=== PATIENT | female | born 1995 | race African-American/Black ===

== ENCOUNTER 2016-05-26 11:56 | Emergency (ER) | payer OTHER ==
[~2016-05-26] VITALS: Ht 170.2 cm; Wt 50.0 kg
[~2016-05-26 11:56] MED LIST: BACT800T5 PO; DICY1TAB26 PO; PROM25TA5 PO
[2016-05-26 11:58] VITALS: BP 114/57; PULSE 76; RESP 16; TEMP 98.3; O2SAT 98
--- NOTE | 2016-05-26 12:14 | PD ---
HPI Chief Complaint: Abd Pain/Sore throat. Time Seen by Provider: 12:14 Travel History International Travel<30 days: No Contact w/Intl Traveler<30days: No Traveled to known affect area: No History of Present Illness HPI 21-year-old Afro-[place]er female coming in with 2 day history of sore throat more on the right than the left, without headache, congestion, ear pain, postnasal drip, or cough. She also complaining of dull ache in the left upper quadrant. Patient is 11 weeks . Patient relates history of being treated for urinary tract infection with amoxicillin 2 weeks ago which she finished the course but did not have follow-up urinalysis. She denies nausea, vomiting, or diarrhea. Patient denies urinary symptoms or vaginal symptoms at this time. Patient has been taking Tylenol with mild relief of symptoms. Pain in the throat is 3/10, pain in the abdomen is 2/10. She states ibuprofen and Tylenol "messed with her liver". PFSH Past Medical History ADHD: Yes (PT--WAS ON MEDS IN THE PAST) Anxiety: Yes Depression: Yes Cancer: No Cardiovascular Problems: No Diabetes: No Diminished Hearing: No Gastrointestinal Disorders: No Genitourinary: No Musculoskeletal: No Neurologic: No Psychiatric: Yes ("mood disorder") Reproductive: No Respiratory: Yes Immunizations Current: Yes Migraines: No Seizures: No Thyroid Disease: No Ulcer: No : 1 Para: 0 Ovarian Cysts: Yes Dilation and Curettage (D&C): Yes Past Surgical History Other Surgery: No Social History Alcohol Use: No Tobacco Use: No Substance Use: Yes (HX OF MARIJUANA USE) Allergies-Medications (Allergen,Severity, Reaction): Coded Allergies: Ibuprofen (Verified Adverse Reaction, Unknown, 09/14/15) messes with liver Tylenol (Verified Adverse Reaction, Unknown, 09/14/15) messes with her liver Reported Meds & Prescriptions Reported Meds & Active Scripts Active Acetaminophen Extra Strength (Acetaminophen) 500 Mg Cap 1,000 Mg PO Q6H PRN Augmentin (Amoxicillin-Clavulanate) 875-125 mg Tab 875 Mg PO BID not for use in CrCl <30 ml/min. Phenergan 25 mg (Promethazine HCl) 25 Mg Tab 25 Mg PO Q6H PRN Bentyl (Dicyclomine HCl) 20 Mg Tab 20 Mg PO Q6H FOR CRAMPS Bactrim Ds1 Tab 1 Tab Tab 1 Tab PO BID Review of Systems General / Constitutional: No: Fever, Chills Eyes: No: Visual changes HENT: Positive: Sore Throat (see history of present illness), No: Headaches, Rhinitis, Rhinorrhea, Congestion, Nosebleed, Neck Stiffness, Neck Pain, Ear Discharge, Earache Cardiovascular: No: Chest Pain or Discomfort Respiratory: No: Cough, Shortness of Breath, Wheezing Gastrointestinal: Positive: Abdominal Pain (see history present illness.), No : Nausea, Vomiting, Diarrhea Genitourinary: Positive: Flank Pain (left.), No: Dysuria Musculoskeletal: No: Pain Skin: No Rash Neurologic: No: Weakness Psychiatric: No: Depression Endocrine: No: Polydipsia Hematologic/Lymphatic: No: Easy Bruising Physical Exam Narrative GENERAL: Patient appears no acute distress. SKIN: Warm and dry. Normal color. Normal turgor. HEAD: Atraumatic. Normocephalic. EYES: Pupils equal and round. No scleral icterus. No injection or drainage. ENT: No nasal bleeding or discharge. Mucous membranes pink and moist. Posterior pharynx shows increased lymphadenopathy on the right tonsil with white exudate noted, left tonsil is mildly inflamed. Uvula is midline. Strep swab is obtained. NECK: Trachea midline. No JVD. Neck is supple nontender with mild lymphadenopathy in the anterior cervical lymph nodes. Right greater than left. CARDIOVASCULAR: Regular rate and rhythm. No murmurs gallops or rubs. RESPIRATORY: No accessory muscle use. Clear to auscultation. Breath sounds equal bilaterally. GASTROINTESTINAL: Abdomen soft, non-tender, nondistended. Hepatic and splenic margins not palpable. Patient has mild CVA tenderness on the left. MUSCULOSKELETAL: Extremities without clubbing, cyanosis, or edema. No obvious deformities. NEUROLOGICAL: Awake and alert. No obvious cranial nerve deficits. Motor grossly within normal limits. Five out of 5 muscle strength in the arms and legs. Normal speech. PSYCHIATRIC: Appropriate mood and affect; insight and judgment normal. Data Data Last Documented VS Vital Signs Date Time Temp Pulse Resp B/P Pulse Ox O2 Delivery O2 Flow Rate FiO2 05/26/16 11:58 98.3 76 16 114/57 98 Room Air Orders Urinalysis - C+S If Indicated (05/26/16 12:19) Group A Rapid Strep Screen (05/26/16 12:19) Urine Culture (05/26/16 12:20) Strep Culture (Group A) (05/26/16 12:20) Labs Laboratory Tests Test 05/26/16 12:20 Urine Color YELLOW Urine Turbidity HAZY Urine pH 6.5 Urine Specific [place] 1.018 Urine Protein TRACE mg/dL Urine Glucose (UA) NEG mg/dL Urine Ketones NEG mg/dL Urine Occult Blood NEG Urine Nitrite NEG Urine Bilirubin NEG Urine Urobilinogen LESS THAN 2.0 MG/DL Urine Leukocyte Esterase LARGE Urine RBC 2 /hpf Urine WBC 15 /hpf Urine Squamous Epithelial 42 /hpf Cells Urine Amorphous Sediment RARE Urine Bacteria RARE /hpf Urine Mucus FEW /lpf Microscopic Urinalysis Comment CULTURE INDICATED MDM Medical Decision Making Medical Screen Exam Complete: Yes Emergency Medical Condition: Yes Differential Diagnosis Strep pharyngitis. Early tonsillar abscess. Urinary tract infection. Renal colic. Early pyelonephritis. 11 week . Narrative Course Patient is medically stable at time of exam. Rapid strep test is sent to the lab as well as urinalysis. Urinalysis shows obvious urinary tract infection, with urinary culture pending. Rapid strep is negative. Patient is treated with Augmentin 875 twice a day 10 days. Patient is also given acetaminophen to take as needed for pain. Patient is recommended to follow-up with her primary care physician or [facility] [employer] [facility] to ensure clearance or urinary tract infection and to ensure improvement in her sore throat. Patient may return to emergency department worsening symptoms as necessary. Diagnosis Primary Impression: UTI (lower urinary tract infection) Additional Impression: Tonsillitis with exudate Referrals: Senior Planning Analyst 1 week Patient Instructions: Dysuria (ED), General Instructions, Tonsillitis (DC) Additional Instructions: Urinalysis shows obvious urinary tract infection, with urinary culture pending. Rapid strep is negative. Patient is treated with Augmentin 875 twice a day 10 days. Patient is also given acetaminophen to take as needed for pain. Patient is recommended to follow-up with her primary care physician or [facility]EE[facility] to ensure clearance or urinary tract infection and to ensure improvement in her sore throat. Patient may return to emergency department worsening symptoms as necessary. Med/Other Pt SpecificInfo: Prescription(s) given Scripts Acetaminophen (Acetaminophen Extra Strength)500 Mg Cap1,000 Mg PO Q6H PRN (PAIN SCALE 4 TO 10) #60 CAP Ref 1 Prov:Saumya Francis MD 05/26/16 Amoxicillin-Clavulanate (Augmentin)875-125 mg [id number] Mg PO BID #20 TAB not for use in CrCl <30 ml/min. Prov:Saumya Francis MD 05/26/16 Disposition: 01 DISCHARGE HOME Condition: Stable Skinny Han May 26, 2016 12:14
[2016-05-26 12:50] LABS: BACTERIA, URINE RARE /hpf; BLOOD, URINE NEG (NEG); COMMENT (UR) CULTURE INDICATED; CULTURE IF INDICATED CULTURE INDICATED; GLUCOSE,URINE NEG (NEG); KETONE, URINE NEG (NEG); MUCUS URINE FEW /lpf (OCC); NITRITE,URINE NEG (NEG); PH, URINE 6.5 (5.0-8.5); SQUAMOUS EPITHELIAL CELL URINE 42 /hpf (0-5); URINE COLOR YELLOW (YELLW/STRAW)
[2016-05-26] MEDS ORDERED: EXTR500C PO (12:57)
[2016-05-26] MEDS ORDERED: AUGM875T PO (12:57)
[2016-05-26 13:21] VITALS: BP 112/70
[2016-06-23] MEDS ORDERED: UNIS25TA2 PO (12:53)
[2016-06-23] MEDS ORDERED: VITA25TA PO (12:53)
[2016-06-24] MEDS ORDERED: VITA25TA PO ×2 (08:43→08:46)
[2016-06-24] MEDS ORDERED: UNIS25TA2 PO ×2 (08:43→08:46)
[2016-07-04] MEDS ORDERED: UNIS25TA2 PO (16:36)
[2016-07-04] MEDS ORDERED: VITA25TA PO (16:36)
[2016-07-04] MEDS ORDERED: ROCE1INJ3 IM ×2 (16:53→20:47)
[2016-07-04] MEDS ORDERED: TRICTAB PO (20:53)
[2016-07-04] MEDS ORDERED: FERR325T PO (20:53)
[2016-10-08] MEDS ORDERED: CEPH500C PO (12:33)
== END 2016-05-26 13:45 | disposition home or self-care (01) ==
LOC: NEPE 11:56
DX: O23.41 Unspecified infection of urinary tract in pregnancy, first trimester (principal); B96.89 Other specified bacterial agents as the cause of diseases classified elsewhere; J03.90 Acute tonsillitis, unspecified; Z3A.11 11 weeks gestation of pregnancy
CPT/HCPCS: 81001; 87081; 87086; 87880; 99284

== ENCOUNTER 2016-06-04 14:36 | Emergency (ER) | payer OTHER ==
[~2016-06-04] VITALS: Ht 170.2 cm; Wt 61.4 kg
[~2016-06-04 14:36] MED LIST changes: +AUGM875T PO; +EXTR500C PO
[2016-06-04 14:37] VITALS: BP 122/54; PULSE 84; RESP 15; TEMP 98; O2SAT 98
--- NOTE | 2016-06-04 16:33 | PD ---
HPI Chief Complaint: Related Problem Time Seen by Provider: 16:33 Travel History International Travel<30 days: No Contact w/Intl Traveler<30days: No Traveled to known affect area: No [facility] Past Medical History ADHD: Yes (PT--WAS ON MEDS IN THE PAST) Anxiety: Yes Depression: Yes Cancer: No Cardiovascular Problems: No Diabetes: No Diminished Hearing: No Gastrointestinal Disorders: No Genitourinary: No Musculoskeletal: No Neurologic: No Psychiatric: Yes ("mood disorder") Reproductive: No Respiratory: Yes Immunizations Current: Yes Migraines: No Seizures: No Thyroid Disease: No Ulcer: No ?: LMP: 03/11/16 : 1 Para: 0 Ovarian Cysts: Yes Dilation and Curettage (D&C): Yes Past Surgical History Other Surgery: No Social History Alcohol Use: No Tobacco Use: No Substance Use: Yes (HX OF MARIJUANA USE) Allergies-Medications (Allergen,Severity, Reaction): Coded Allergies: Ibuprofen (Verified Adverse Reaction, Unknown, 06/04/16) messes with liver Tylenol (Verified Adverse Reaction, Unknown, 06/04/16) messes with her liver Reported Meds & Prescriptions Reported Meds & Active Scripts Active Acetaminophen Extra Strength (Acetaminophen) 500 Mg Cap 1,000 Mg PO Q6H PRN Augmentin (Amoxicillin-Clavulanate) 875-125 mg Tab 875 Mg PO BID not for use in CrCl <30 ml/min. Phenergan 25 mg (Promethazine HCl) 25 Mg Tab 25 Mg PO Q6H PRN Bentyl (Dicyclomine HCl) 20 Mg Tab 20 Mg PO Q6H FOR CRAMPS Bactrim Ds1 Tab 1 Tab Tab 1 Tab PO BID Data Data Last Documented VS Vital Signs Date Time Temp Pulse Resp B/P Pulse Ox O2 Delivery O2 Flow Rate FiO2 06/04/16 14:37 98.0 84 15 122/54 98 Skinny Han Jun 04, 2016 16:33
[2016-06-04 16:53] VITALS: BP 128/59; PULSE 77; RESP 20; O2SAT 100
--- NOTE | 2016-06-04 17:00 | PD ---
HPI Chief Complaint: Related Problem Time Seen by Provider: 16:33 Travel History International Travel<30 days: No Contact w/Intl Traveler<30days: No Traveled to known affect area: No History of Present Illness HPI This is a 21-year-old female who presents to the emergency department with vaginal bleeding. She is 14 weeks . She says that she's filled 2 pads this morning and she doesn't seem to be stopping. She has not seen any clots. She denies any cramping, lightheadedness or dizziness. She has one child who is 1 years old and she's had a stillbirth at 4.5 months. PFSH Past Medical History ADHD: Yes (PT--WAS ON MEDS IN THE PAST) Anxiety: Yes Depression: Yes Cancer: No Cardiovascular Problems: No Diabetes: No Diminished Hearing: No Gastrointestinal Disorders: No Genitourinary: No Musculoskeletal: No Neurologic: No Psychiatric: Yes ("mood disorder") Reproductive: No Respiratory: Yes Immunizations Current: Yes Migraines: No Seizures: No Thyroid Disease: No Ulcer: No ?: LMP: 03/11/16 : 1 Para: 0 Ovarian Cysts: Yes Dilation and Curettage (D&C): Yes Past Surgical History Other Surgery: No Social History Alcohol Use: No Tobacco Use: No Substance Use: Yes (HX OF MARIJUANA USE) Allergies-Medications (Allergen,Severity, Reaction): Coded Allergies: Ibuprofen (Verified Adverse Reaction, Unknown, 06/04/16) messes with liver Tylenol (Verified Adverse Reaction, Unknown, 06/04/16) messes with her liver Reported Meds & Prescriptions Reported Meds & Active Scripts Active Acetaminophen Extra Strength (Acetaminophen) 500 Mg Cap 1,000 Mg PO Q6H PRN Augmentin (Amoxicillin-Clavulanate) 875-125 mg Tab 875 Mg PO BID not for use in CrCl <30 ml/min. Phenergan 25 mg (Promethazine HCl) 25 Mg Tab 25 Mg PO Q6H PRN Bentyl (Dicyclomine HCl) 20 Mg Tab 20 Mg PO Q6H FOR CRAMPS Bactrim Ds1 Tab 1 Tab Tab 1 Tab PO BID Review of Systems Except as stated in HPI: all other systems reviewed are Neg Physical Exam Narrative GENERAL: Well-appearing, no acute distress, nontoxic SKIN: Warm and dry. HEAD: Atraumatic. Normocephalic. ENT: No nasal bleeding or discharge. Moist mucous membranes GI: Nontender, nondistended PRODUCTION LINE SOLDERER: Dark blood in the vault with no active bleeding from the os, cervix is closed long and high MUSCULOSKELETAL: No obvious deformities. No clubbing. No cyanosis. No edema. NEUROLOGICAL: Awake and alert. No obvious cranial nerve deficits. Motor grossly within normal limits. Normal speech. PSYCHIATRIC: Appropriate mood and affect; insight and judgment normal. Data Data Last Documented VS Vital Signs Date Time Temp Pulse Resp B/P Pulse Ox O2 Delivery O2 Flow Rate FiO2 06/04/16 16:53 77 20 128/59 100 Room Air 06/04/16 14:37 98.0 Orders Ed Poc Ultrasound (06/04/16 ) MDM Medical Decision Making Medical Screen Exam Complete: Yes Emergency Medical Condition: Yes Interpretation(s) Afebrile, no tachycardia, normotensive [id number] ultrasound: Intrauterine with movement is visualized with a heart rate of 164 Differential Diagnosis Ectopic , threatened miscarriage, incomplete miscarriage, complete miscarriage Narrative Course This is a 21-year-old female who presents to the emergency department with vaginal bleeding in the setting of early . Patient has evidence of some dark blood in the vault on pelvic exam. Bedside ultrasound demonstrates an intrauterine with a normal heart rate. I did discuss with the patient potential risk of miscarriage. She was discharged home and told to return if she develops heavy bleeding, lightheadedness or dizziness. Diagnosis Primary Impression: Threatened miscarriage Patient Instructions: General Instructions Additional Instructions: You have been diagnosed with a threatened miscarriage. Many women who have vaginal bleeding in early go on to have normal pregnancies. However some women that have vaginal bleeding will have a miscarriage and it is important to followup with your activity director. If you develop severe abdominal pain, fever, persistent vomiting or inability to eat, heavy vaginal bleeding using more than one pad an hour, lightheadedness , dizziness, chest pain or shortness of breath return to the emergency department immediately. Followup with your activity director as soon as possible. Take Tylenol as needed for pain. Med/Other Pt SpecificInfo: No Change to Meds Disposition: DISCHARGE HOME Condition: Stable Ailyn Mendoza MD Jun 04, 2016 17:00
[2016-06-04 17:48] VITALS: BP 124/69
[2016-06-23] MEDS ORDERED: VITA25TA PO (12:53)
[2016-06-23] MEDS ORDERED: UNIS25TA2 PO (12:53)
[2016-06-24] MEDS ORDERED: UNIS25TA2 PO ×2 (08:43→08:46)
[2016-06-24] MEDS ORDERED: VITA25TA PO ×2 (08:43→08:46)
[2016-07-04] MEDS ORDERED: UNIS25TA2 PO (16:36)
[2016-07-04] MEDS ORDERED: VITA25TA PO (16:36)
[2016-07-04] MEDS ORDERED: ROCE1INJ3 IM ×2 (16:53→20:47)
[2016-07-04] MEDS ORDERED: FERR325T PO (20:53)
[2016-07-04] MEDS ORDERED: TRICTAB PO (20:53)
[2016-10-08] MEDS ORDERED: CEPH500C PO (12:33)
== END 2016-06-04 17:48 | disposition home or self-care (01) ==
LOC: NEPE 14:36
DX: O20.0 Threatened abortion (principal); Z3A.14 14 weeks gestation of pregnancy
CPT/HCPCS: 99283

== ENCOUNTER → 2016-06-15 | Outpatient (CLI) | payer MEDICAID ==
[~2016-06-15] MED LIST changes: +ALBU6.7H INH; +CEPH-459 PO; +CEPH500C PO; +FERR324T4 PO; +FERR325T PO; +METR-1 PO; +NITR100C4 PO; +ROCE1INJ3 IM; +TRICTAB PO; +UNIS25TA2 PO; +VITA25TA PO
== END ==
LOC: HPND 08:27
PROVIDERS: ATTEND Family Medicine
DX: O26.851 Spotting complicating pregnancy, first trimester (principal)
CPT/HCPCS: 76801

== ENCOUNTER → 2016-07-11 | Outpatient (CLI) | payer MEDICAID ==
[~2016-07-11] MED LIST changes: -AUGM875T PO; -BACT800T5 PO; -DICY1TAB26 PO; -EXTR500C PO; -PROM25TA5 PO
== END ==
LOC: HPND 08:25
PROVIDERS: ATTEND Family Medicine
DX: O20.8 Other hemorrhage in early pregnancy (principal)
CPT/HCPCS: 76805

== ENCOUNTER → 2016-08-07 | Outpatient (CLI) | payer MEDICAID | LOC: HPND 08:13 | PROVIDERS: ATTEND Family Medicine | DX: O20.9 Hemorrhage in early pregnancy, unspecified (principal) | CPT/HCPCS: 76816 ==

== ENCOUNTER → 2016-09-04 | Outpatient (CLI) | payer MEDICAID | LOC: HPND 08:26 | PROVIDERS: ATTEND Family Medicine | DX: O36.8920 Maternal care for other specified fetal problems, second trimester, not applicable or unspecified (principal); Z3A.25 25 weeks gestation of pregnancy | CPT/HCPCS: 76816 ==

== ENCOUNTER → 2016-09-21 | Outpatient (CLI) | payer MEDICAID | LOC: HPND 08:34 | PROVIDERS: ATTEND Family Medicine | DX: O36.5920 Maternal care for other known or suspected poor fetal growth, second trimester, not applicable or unspecified (principal); O36.8920 Maternal care for other specified fetal problems, second trimester, not applicable or unspecified | CPT/HCPCS: 76816 ==

== ENCOUNTER 2016-10-06 12:34 | Observation (INO) | payer MEDICAID ==
[2016-10-06] VITALS (8 sets, daily range): BP systolic 116–120; BP diastolic 55–70; PULSE 71–83; RESP 16; TEMP 98.7–99.3; O2SAT 100
[~2016-10-06] VITALS: Ht 170.2 cm; Wt 63.0 kg
[~2016-10-06 12:34] MED LIST changes: -ALBU6.7H INH; -CEPH-459 PO; -CEPH500C PO; -FERR324T4 PO; -METR-1 PO; -NITR100C4 PO
[2016-10-06 14:13] LABS: BACTERIA, URINE OCC /hpf; BLOOD, URINE NEG (NEG); COMMENT (UR) CULT NOT INDICATED; CULTURE IF INDICATED CULT NOT INDICATED; GLUCOSE,URINE NEG (NEG); KETONE, URINE NEG (NEG); MUCUS URINE MOD /lpf (OCC); NITRITE,URINE NEG (NEG); SQUAMOUS EPITHELIAL CELL URINE 3 /hpf (0-5); URINE COLOR YELLOW (YELLW/STRAW)
--- NOTE | 2016-10-06 14:15 | PD ---
HPI Chief Complaint Abdominal pain, vaginal bleeding Date Seen: October 06, 2016 Time Seen: 12:30 (Rocky Greene MD R1) Travel History International Travel<30 Days: No Contact w/Intl Traveler<30Days: No Known Affected Area: No (Rocky Greene MD R1) History of Present Illness HPI Patient is a 21-year-old at about 30 weeks (HORACE of 09/03 by US, Dec. by LMP), who presents with vaginal bleeding and abdominal pain. Patient reports that she was bleeding throughout her first trimester. Around 20 weeks of gestational age, her vaginal bleeding stopped. About 2 days ago, her vaginal bleeding returned. She describes the bleeding is heavy like a period, off and on , with passage of dime-sized clots, followed within a few hours by right lower quadrant abdominal pain. Patient describes her abdominal pain as crampy, 6 out of 10 severity. Patient presented to an emergency department in [place] where they monitored her and performed a bedside ultrasound and then sent her home. She is denying any contractions or any leakage of fluid. She endorses movement. She denies any headache, vision changes, shortness of breath, chest pain, swelling of her hands or feet, leg pain, nausea, vomiting, dysuria, fever, chills. Para: 1 : 3 Miscarriage: 1 (Rocky Greene MD R1) History Past Medical History Medical History: Denies Significant Hx (Rocky Greene MD R1) Obstetric History Obstetric History Patient reports that her previous was uncomplicated vaginal at 37 weeks gestational age. She also reports one miscarriage at 16 weeks. (Rocky Greene MD R1) Past Surgical History Surgical History: No Previous Surgery (Rocky Greene MD R1) Family History Narrative Family History Patient reports that her sister had multiple deliveries of premature neonates between 20 and 30 weeks gestational age. (Rocky Greene MD R1) Social History Narrative Social History Patient reports living at home with her mother and son. Alcohol Use: No Tobacco Use: No Substance Abuse: No (Rocky Greene MD R1) Allergies-Medications (Allergen,Severity, Reaction): Coded Allergies: No Known Allergies (Unverified , 10/06/16) Home Meds Active Scripts Ferrous Sulfate DR 324 Mg [id number] Mg PO DAILY #30 TAB Ref 0 Prov:Rocky Gardner MD R2 10/07/16 Nitrofurantoin Monohydrate Macrocrystals 100 Mg [id number] Mg PO BIDPC #3 CAP Prov:Rocky Gardner MD R2 10/07/16 Vit-Ferrous Fumarate ()1 Tab Tab1 Tab PO DAILY #30 TAB Ref 11 Prov:Katie Swann MD R2 07/04/16 Reported Medications Albuterol 6.7 GM Inh (Proventil Hfa 6.7 GM Inh)90 Mcg/Act Aer2 Puff INH Q4-6H PRN (SHORTNESS OF BREATH) #1 INHALER Ref 0 10/07/16 Discontinued Scripts Ferrous Sulfate 325 Mg [id number] Mg PO BID #60 TAB Ref 4 Prov:Katie Swann MD R2 07/04/16 Pyridoxine (Vitamin B-6)25 Mg Tab25 Mg PO BID #30 TAB Ref 10 Prov:Katie Swann MD R2 07/04/16 Doxylamine Succinate (Sleep) (Unisom)25 Mg Tab12.5 Mg PO HS PRN (NAUSEA OR VOMITING) #30 TAB Ref 10 Take 1/2 a tab daily Prov:Katie Swann MD R2 07/04/16 Review of Systems General / Constitutional: No: Fever, Chills Eyes: No: Blurred Vision, Visual changes HENT: No: Headaches Cardiovascular: No: Chest Pain or Discomfort Respiratory: No: Short of Breath Gastrointestinal: Abdominal Pain, No: Nausea, Vomiting Genitourinary: No: Dysuria Neurologic: No: Headache Psychiatric: No: Substance Abuse (Rocky Greene MD R1) Physical Exam Narrative GENERAL: Well-nourished, well-developed patient. SKIN: Warm and dry. HEAD: Normocephalic and atraumatic. EYES: No scleral icterus. No injection or drainage. ENT: No nasal drainage noted. Mucous membranes pink. Airway patent. NECK: Supple, trachea midline. No JVD. CARDIOVASCULAR: Regular rate and rhythm without murmurs, gallops, or rubs. RESPIRATORY: Breath sounds equal bilaterally. No accessory muscle use. ABDOMEN/GI: Abdomen soft, non-tender, bowel sounds present, no rebound, no guarding Gravid to 30 weeks size GENITOURINARY: External Genitalia: intact and normal in appearance; no blood noted Cervix: posterior Dilatation: closed Sterile speculum exam showed normal cervix with no bleeding from os FHT's: Category: Category 2 Baseline: 145 Reactive: Reactive Variability: moderate Variability Decels: A few variable decelerations noted EXTREMITIES: No cyanosis or edema. BACK: Nontender without obvious deformity. No CVA tenderness. NEUROLOGICAL: Awake and alert. Motor and sensory grossly within normal limits. Normal speech. (Rocky Greene MD R1) Data Data Vital Signs Reviewed: Yes Orders Vital Signs (Adult) .ON ADMISSION (10/06/16 13:04) ^ Labor Status (10/06/16 13:04) Urinalysis - C+S If Indicated (10/06/16 13:04) ^ Hydration (10/06/16 13:04) Urine Culture (10/06/16 12:05) Us Ob Pelvis >14 Wks Fetus (10/06/16 ) Gc And Chlamydia Pcr (10/06/16 13:52) Ob/Psych Drug Screen, Urine (10/06/16 13:52) Urinalysis - C+S If Indicated (10/06/16 13:52) Labs Laboratory Tests Test 10/06/16 12:05 Urine Color YELLOW Urine Turbidity HAZY Urine pH 7.5 Urine Specific [place] 1.012 Urine Protein 30 Urine Glucose (UA) NEG Urine Ketones NEG Urine Occult Blood NEG Urine Nitrite NEG Urine Bilirubin NEG Urine Urobilinogen LESS THAN 2.0 Urine Leukocyte Esterase SMALL Urine RBC LESS THAN 1 Urine WBC 5 Urine Squamous Epithelial 5 Cells Urine Transitional Epithelial <1 Cells Urine Amorphous Sediment RARE Urine Bacteria MOD Urine Mucus FEW Microscopic Urinalysis Comment CULTURE INDICATED Date/Time Procedure Status Source Growth 10/06/16 12:05 Urine Culture Received Urine Clean Catch Pending (Rocky Greene MD R1) MDM Plan Patient is a 21-year-old at about 30 weeks (HORACE of 09/03 by US, Dec.16 by LMP), who presents with vaginal bleeding followed by RLQ abdominal pain. Patient noted to have a subchorionic hemorrhage noted on previous ultrasound exam. No signs of placenta previa or abruption on previous ultrasound exams. 1. Vaginal bleeding and abdominal pain Monitor vital signs Monitor labor status with tocometry UA, urine culture if indicated urine drug screen Urine PCR for gonorrhea and chlamydia Encourage by mouth hydration US today showed adequate growth relative to previous scan but IUGR with EFW at 3rd percentile, normal amniotic fluid, BPP 8 out of 8, no obvious signs of retroplacental or retro-chorionic hematoma at this time. Previously document placental cystic and observe. Elevated umbilical artery S/D ratio of 5.03, good breathing, placenta is posterior and grade 2 and there is no evidence of placenta previa. no abruption noted. plan to call [facility]. Sterile speculum exam showed normal cervix, closed, no blood from os Called [facility] and made an appointment for October 20 at 2:15 p.m. 10/06/16 at 17:00 Addendum: Pt given dose of betamethasone for IUGR and due to c/f delivery. IVF LR bolus given for category 2 tracing. discussed case with [facility] doctor. Recommended 24 hour observation for vaginal bleeding and second dose of betamethasone tomorrow. Tracing has since been category 1. UA remarkable for trace leuk est, occ bacteria, mod mucus, 3 squamous epi's. Thus, treating with macrobid 100mg po bid for 7 days. CBC remarkable for anemia with hgb to 9.2. Will treat with iron therapy. will f/u UDS and GC/chlamydia tomorrow. dw Dr. Fry. (Rocky Greene MD R1) Attending Attestation Patient seen, examined, and discussed with resident team. I agree with assessment and management as documented and discussed with me. Additional diagnoses: IUGR: Discussed case with [facility]. Betamethasone in anticipation of possible delivery. 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 Counselled to quit. ( Shena Fry MD) Scripts Ferrous Sulfate DR 324 Mg [id number] Mg PO DAILY #30 TAB Ref 0 Prov:Rocky Gardner MD R2 10/07/16 Nitrofurantoin Monohydrate Macrocrystals 100 Mg [id number] Mg PO BIDPC #3 CAP Prov:Rocky Gardner MD R2 10/07/16 Rocky Greene MD R1 October 06, 2016 14:15 Shena Fry MD October 08, 2016 12:26
[2016-10-06] MEDS ORDERED: BETAMETHASONE SOD PHOS/ACETATE SUSP 30 MG/5 ML VIAL IM ONE (15:00)
[2016-10-06 15:13] LABS: AMPHETAMINE, URINE NEG (NEG); BARBITURATES, URINE NEG (NEG); COCAINE, URINE NEG (NEG)
[2016-10-06 16:31] LABS: AUTOMATED NEUTROPHIL # 5.9 TH/MM3 (1.8-7.7); BASOPHIL % 0.2 % (0.0-2.0); EOSINOPHIL % 0.5 % (0.0-4.0); HEMATOCRIT 27.2 % (35.0-46.0); HEMO FLAGS DIFF FINAL; LYMPH % 19.8 % (9.0-44.0); LYMPHOCYTE # 1.7 TH/MM3 (1.0-4.8); MEAN CELL VOLUME 82.1 FL (80.0-100.0); MEAN CORPUSCULAR HEMOGLOBIN 27.8 PG (27.0-34.0); MEAN CORPUSCULAR HGB CONC 33.9 % (32.0-36.0); MONO % 9.3 % (0.0-8.0); NEUT % 70.2 % (16.0-70.0); PLATELET COUNT 174 TH/MM3 (150-450); RED BLOOD COUNT 3.31 MIL/MM3 (4.00-5.30); RED CELL DISTRIBUTION WIDTH 14.6 % (11.6-17.2); WHITE BLOOD COUNT 8.4 TH/MM3 (4.0-11.0)
[2016-10-06] MEDS: LACTATED RINGER'S 1000 ML INJ 1,000 ML IV SCH ×5 (16:36→20:04)
[2016-10-06] MEDS: NITROFURANTOIN MONOHYD MACROCR 100 MG CAP PO SCH (16:37)
[2016-10-06] MEDS ORDERED: ACETAMINOPHEN 325 MG TAB PO PRN (17:00)
[2016-10-06] MEDS ORDERED: ONDANSETRON HCL 4 MG/2 ML VIAL IV PRN (17:00)
[2016-10-06] MEDS: IRON SUCROSE INJ 100 MG in SODIUM CHLORIDE 0.9% INJ 100 ML IV SCH (19:43)
[2016-10-06 21:51] LABS: CHLAMYDIA PCR NOT DETECTED (NOT DETECT); NEISSERIA PCR NOT DETECTED (NOT DETECT)
[2016-10-07] VITALS: BP 109/48; PULSE 72
[2016-10-07 09:12] VITALS: BP 118/56; PULSE 75; RESP 16; TEMP 98.1
[2016-10-07] MEDS: NITROFURANTOIN MONOHYD MACROCR 100 MG CAP PO SCH ×2 (09:45→18:01)
--- NOTE | 2016-10-07 09:54 | HHI.PR ---
Subjective Remarks 21 year old at about 30 weeks gestation with HORACE of 09/03 presented yesterday afternoon with vaginal bleeding. It started 3 days ago and mostly ceased yesterday. It was the amount of a menstrual period and there was some blood clots. Ultrasound done yesterday showed no hematoma, placenta previa, or abruption. There was category 2 tracing yesterday that quickly resolved with administration of fluids. Ultrasound showed IUGR, and she received one dose of betamethasone yesterday, with the second dose due this afternoon. She is taking Macrobid for a UTI. This morning she is resting in bed with no complaints. She reports abdominal pain has resolved. She reports light pink on the toilet paper when she wipes but no heavy bleeding. She feels good movements. She reports no leakage of fluid. Objective Vital Signs Date Time Temp Pulse Resp B/P Pulse Ox O2 Delivery O2 Flow Rate FiO2 10/07/16 09:12 75 16 118/56 10/07/16 09:12 98.1 10/07/16 00:00 72 109/48 10/06/16 19:47 78 120/70 10/06/16 19:46 16 10/06/16 19:45 99.3 10/06/16 17:30 98.7 16 10/06/16 17:25 100 10/06/16 17:25 75 10/06/16 17:21 71 116/55 10/06/16 17:20 100 10/06/16 17:20 82 10/06/16 17:15 100 10/06/16 17:15 83 Result Diagram: 10/06/16 1610 Objective Remarks GENERAL: Lying in bed, comfortable SKIN: Normal appearance HEAD: Normocephalic and atraumatic. EYES: No scleral icterus. No injection or drainage. ENT: No nasal drainage noted. Mucous membranes pink. Airway patent. NECK: Supple, trachea midline. No JVD. CARDIOVASCULAR: Regular rate and rhythm without murmurs, gallops, or rubs. RESPIRATORY: Breath sounds equal bilaterally. No accessory muscle use. ABDOMEN/GI: Abdomen soft, non-tender, bowel sounds present, no rebound, no guarding Gravid to 30 weeks size FHT's: Category: Category 1 Baseline: 140 Reactive: Reactive Variability: moderate variability Decels: none recently EXTREMITIES: No cyanosis or edema. BACK: Nontender without obvious deformity. No CVA tenderness. NEUROLOGICAL: Awake and alert. Motor and sensory grossly within normal limits. Normal speech. Assessment and Plan Problem List: (1) IUGR (intrauterine growth restriction) affecting care of mother Status: Acute Plan: IUGR with EFW at 3rd percentile, normal amniotic fluid, BPP 8/8. Umbilical artery S/D ratio of 5.03. - Scheduled to see MFM this with ultrasound - Serial ultrasounds, monitor status, umbilical artery flow - Indications for early induction according to course, ultrasound findings - Labor precautions provided to patient. - Betamethasone given once yesterday, second dose due this afternoon. (2) Third trimester bleeding Status: Acute Plan: U/S obtained showing no retroplacental or retro-chorionic hematoma. BPP 8 /8. Category 2 tracing yesterday ceased with administration of fluids. Category 1 tracing this morning. Abdominal pain stopped, trace bleeding only at this time. Mom feels good movements this morning. - Will recheck this afternoon to assess for bleeding. - Labor precautions provided to mom - kick counts at home. - Will follow with MFM on - Close follow up with OB provider, Dr. Jones, appointment arranged. (3) Anemia Status: Acute Plan: - Receiving IV iron in hospital - Oral iron at discharge (4) Urinary tract infection Status: Acute Plan: - Macrobid for possible UTI - Follow urine cultures Discussed Condition With Dr. Erazo Discharge Planning Plan for discharge this afternoon if no further vaginal bleeding and reassuring strip. Has follow up with MFM scheduled this , will receive ultrasound at that time. Follow up appt with Dr. Jones, her OB provider, is arranged. Physician Attestation Agree with above. Discussed ultrasound results in depth with patient. Counseled about mutivitamins and iron. Rocky Gardner MD R2 October 07, 2016 09:54 Kathia Erazo MD October 08, 2016 12:46
[2016-10-07] MEDS ORDERED: ALBU6.7H INH (12:31)
[2016-10-07 13:28] VITALS: BP 118/59; PULSE 76
[2016-10-07 13:29] VITALS: RESP 20
[2016-10-07 16:43] VITALS: RESP 18; TEMP 98.1
[2016-10-07 16:44] VITALS: BP 108/43; PULSE 83
[2016-10-07] MEDS ORDERED: FERR324T4 PO (17:31)
[2016-10-07] MEDS ORDERED: NITR100C4 PO (17:31)
--- NOTE | 2016-10-07 17:32 | HHI.DCPOC ---
Discharge Care Plan Diagnosis: (1) IUGR (intrauterine growth restriction) affecting care of mother (2) Third trimester bleeding (3) Anemia (4) Urinary tract infection Goals to Promote Your Health * To prevent worsening of your condition and complications * To maintain your health at the optimal level Directions to Meet Your Goals Take your medications as prescribed Follow your dietary instruction Follow activity as directed Keep your appointments as scheduled Take your immunizations and boosters as scheduled If your symptoms worsen call your PCP, if no PCP go to Urgent Care Center or Emergency Room Smoking is Dangerous to Your Health. Avoid second hand smoke Call the 24-hour hour crisis hotline for domestic abuse at Rocky Gardner MD R2 October 07, 2016 17:32
[2016-10-07] MEDS ORDERED: BETAMETHASONE SOD PHOS/ACETATE SUSP 30 MG/5 ML VIAL IM SCH (18:00)
[2016-10-07] MEDS: IRON SUCROSE INJ 100 MG in SODIUM CHLORIDE 0.9% INJ 100 ML IV SCH (18:01)
--- NOTE | 2016-10-07 18:07 | HHI.PR ---
Subjective Remarks Re-evaluated patient. No abdominal pain. She continues to have mild spotting when she wipes with toilet paper. No heavy bleeding or blood clots. No leakage of fluid. She has good movements. Discussed post-discharge plans. She has an appointment on for ultrasound and she has an appointment with her OB provider in the clinic set up. If she has increased vaginal bleeding, abdominal pain, leakage of fluid, or decreased movements, she has instructions to return to the OB ED right away. Objective Vital Signs Date Time Temp Pulse Resp B/P Pulse Ox O2 Delivery O2 Flow Rate FiO2 10/07/16 16:44 83 108/43 10/07/16 16:43 98.1 18 10/07/16 13:29 20 10/07/16 13:28 76 118/59 10/07/16 09:12 75 16 118/56 10/07/16 09:12 98.1 10/07/16 00:00 72 109/48 10/06/16 19:47 78 120/70 10/06/16 19:46 16 10/06/16 19:45 99.3 Result Diagram: 10/06/16 1610 Objective Remarks GENERAL: Lying in bed, comfortable, no distress SKIN: Normal appearance HEAD: Normocephalic and atraumatic. EYES: No scleral icterus. No injection or drainage. ENT: No nasal drainage noted. Mucous membranes pink. Airway patent. NECK: Supple, trachea midline. No JVD. CARDIOVASCULAR: Regular rate and rhythm without murmurs, gallops, or rubs. RESPIRATORY: Breath sounds equal bilaterally. No accessory muscle use. ABDOMEN/GI: Abdomen soft, non-tender, bowel sounds present, no rebound, no guarding Gravid to 30 weeks size FHT's: Category: Category 1 Baseline: 130's Reactive: Reactive Variability: moderate variability Decels: none EXTREMITIES: No cyanosis or edema. BACK: Nontender without obvious deformity. No CVA tenderness. NEUROLOGICAL: Awake and alert. Motor and sensory grossly within normal limits. Normal speech. Assessment and Plan Problem List: (1) IUGR (intrauterine growth restriction) affecting care of mother Status: Acute Plan: IUGR with EFW at 3rd percentile, normal amniotic fluid, BPP 8/8. Umbilical artery S/D ratio of 5.03. - Scheduled to see [facility] this with ultrasound - Serial ultrasounds, monitor status, umbilical artery flow - Indications for early induction according to course, ultrasound findings - Labor precautions provided to patient. - Betamethasone given once yesterday, second dose due this afternoon. (2) Third trimester bleeding Status: Acute Plan: U/S obtained showing no retroplacental or retro-chorionic hematoma. BPP 8 /8. Category 2 tracing yesterday ceased with administration of fluids. Category 1 tracing this morning. Abdominal pain stopped, trace bleeding only at this time. Mom feels good movements this morning. - Will recheck this afternoon to assess for bleeding. - Labor precautions provided to mom - kick counts at home. - Will follow with MFM on - Close follow up with OB provider, Dr. Jones, appointment arranged. (3) Anemia Status: Acute Plan: - Receiving IV iron in hospital - Oral iron at discharge (4) Urinary tract infection Status: Acute Plan: - Macrobid for possible UTI - Follow urine cultures Rocky Gardner MD R2 October 07, 2016 18:07 Wesley Ambrosio MD October 07, 2016 18:17
[2016-10-08] MEDS ORDERED: CEPH500C PO (12:33)
[2016-10-12 18:05] LABS: BATH SALTS (MDPV) UR NEG (NEG); ECSTASY (MDMA) UR NEG (NEG); HEROIN (6-ACETYLMORPHINE) UR NEG (NEG); K2 SPICE UR NEG (NEG); OBMETHADONE UR NEG (NEG); OXYCODONE (PERCODAN) NEG (NEG); PHENCYCLIDINE URINE NEG (NEG)
[2016-10-12 18:06] LABS: GABAPENTIN UR NEG (NEG); HYDROMORPHONE U NEG (NEG)
== END 2016-10-07 19:54 | disposition home or self-care (01) ==
LOC: HOBED 12:34 → H2EA 17:07
PROVIDERS: ADMIT Obstetrics & Gynecology; ATTEND Obstetrics & Gynecology
DX: O46.93 Antepartum hemorrhage, unspecified, third trimester (principal); O36.5930 Maternal care for other known or suspected poor fetal growth, third trimester, not applicable or unspecified; O99.013 Anemia complicating pregnancy, third trimester; D64.9 Anemia, unspecified; O23.43 Unspecified infection of urinary tract in pregnancy, third trimester; Z3A.30 30 weeks gestation of pregnancy; O99.323 Drug use complicating pregnancy, third trimester; F11.90 Opioid use, unspecified, uncomplicated
CPT/HCPCS: 76815; 76816; 76819; 76820; 80307; 81001; 85025; 87077; 87086; 87186; 87491; 87591; 96372; 99285; G0481; J0702; J1756; J2405; J7120; G0378

== ENCOUNTER 2016-10-10 11:21 | Emergency (ER) | payer MEDICAID ==
[~2016-10-10 11:21] MED LIST changes: +ALBU6.7H INH; +CEPH500C PO; +FERR324T4 PO; -FERR325T PO; -UNIS25TA2 PO; -VITA25TA PO
--- NOTE | 2016-10-10 12:30 | PD ---
HPI Chief Complaint Decreased movement, right lower quadrant pain Date Seen: October 10, 2016 Time Seen: 12:00 (Rocky Greene MD R1) Travel History International Travel<30 Days: No Contact w/Intl Traveler<30Days: No Known Affected Area: No (Rocky Greene MD R1) History of Present Illness HPI Patient is a 21-year-old at 30 weeks and 3 days who presents with decreased movement right lower quadrant abdominal pain. Patient reports decreased movement since yesterday. She only noticed movement once yesterday. This morning, she tried drinking hot and cold fluids, slapping her belly, but none of these things seem to improve movement. She waited an hour and then presented to the [facility]. Since being here in the OB ED, patient has felt movement 2. Patient also reports right lower quadrant pain is at baseline. She denies any dysuria, fever, chills. She denies any vaginal bleeding, leakage of fluid, contractions. She denies any headache, vision changes, chest pain, shortness of breath, nausea, vomiting, swelling. The patient is a patient of Dr. Leydi Jones at the [facility] clinic. She is next scheduled to see Dr. Jones on October 20. She is also scheduled to get an ultrasound next . Patient also endorses frequent emesis. She reports her last marijuana use was 2 days ago. Patient counseled on cannabis hyperemesis syndrome. Para: 1 : 3 Miscarriage: 1 (Rocky Greene MD R1) History Past Medical History Medical History: Denies Significant Hx (Rocky Greene MD R1) Obstetric History Obstetric History Patient reports that her previous periods was uncomplicated vaginal at 37 weeks gestational age. She also has had one miscarriage in 16 weeks of gestational age. (Rocky Greene MD R1) Past Surgical History Surgical History: No Previous Surgery (Rocky Greene MD R1) Family History Narrative Family History Patient reports that her sister had multiple deliveries of premature neonates between 20 and 30 weeks of gestational age. (Rocky Greene MD R1) Social History Narrative Social History Patient reports living at home with her mother and son. Alcohol Use: No Tobacco Use: No Substance Abuse: No (Rocky Greene MD R1) Allergies-Medications (Allergen,Severity, Reaction): Coded Allergies: No Known Allergies (Unverified , 10/06/16) Home Meds Active Scripts Cephalexin (Keflex)250 Mg [id number] Mg PO Q6H 10 Days Ref 0 Prov:Rocky Greene MD R1 10/10/16 Cephalexin 500 Mg [id number] Mg PO Q6H #12 CAP Ref 0 Prov:Shena Fry MD 10/08/[address] 324 Mg [id number] Mg PO DAILY #30 TAB Ref 0 Prov:Rocky Gardner MD R2 10/07/16 Vit-Ferrous Fumarate ()1 Tab Tab1 Tab PO DAILY #30 TAB Ref 11 Prov:Katie Swann MD R2 07/04/16 Reported Medications Albuterol 6.7 GM Inh (Proventil Hfa 6.7 GM Inh)90 Mcg/Act Aer2 Puff INH Q4-6H PRN (SHORTNESS OF BREATH) #1 INHALER Ref 0 10/07/16 Discontinued Scripts Nitrofurantoin Monohydrate Macrocrystals 100 Mg [id number] Mg PO BIDPC #3 CAP Prov:Rocky Gardner MD R2 10/07/16 Ferrous Sulfate 325 Mg [id number] Mg PO BID #60 TAB Ref 4 Prov:Katie Swann MD R2 07/04/16 Pyridoxine (Vitamin B-6)25 Mg Tab25 Mg PO BID #30 TAB Ref 10 Prov:Katie Swann MD R2 07/04/16 Doxylamine Succinate (Sleep) (Unisom)25 Mg Tab12.5 Mg PO HS PRN (NAUSEA OR VOMITING) #30 TAB Ref 10 Take 1/2 a tab daily Prov:Katie wSann MD R2 07/04/16 Review of Systems General / Constitutional: No: Fever, Chills Eyes: No: Blurred Vision, Visual changes HENT: No: Headaches Cardiovascular: No: Chest Pain or Discomfort, Edema Respiratory: No: Short of Breath Gastrointestinal: Nausea, Vomiting (frequent), Abdominal Pain (right lower quadrant abdominal pain at baseline) Genitourinary: No: Dysuria Musculoskeletal: No: Edema (Rocky Greene MD R1) Physical Exam Afebrile vital signs stable and within normal limits. Narrative GENERAL: Well-nourished, well-developed patient. SKIN: Warm and dry. HEAD: Normocephalic and atraumatic. EYES: No scleral icterus. No injection or drainage. ENT: No nasal drainage noted. Mucous membranes pink. Airway patent. NECK: Supple, trachea midline. No JVD. CARDIOVASCULAR: Regular rate and rhythm without murmurs, gallops, or rubs. RESPIRATORY: Breath sounds equal bilaterally. No accessory muscle use. BREASTS: Bilateral exam showed no masses , no retractions, no nipple discharge. ABDOMEN/GI: Abdomen soft, non-tender, bowel sounds present, no rebound, no guarding Gravid to 30 weeks size GENITOURINARY: External Genitalia: intact and normal in appearance Cervix: Posterior Dilatation: Closed Effacement: Thick Station: Long Membranes: [intact] Uterine Contractions: [none] FHT's: Category: Category 1 Baseline: 140 Reactive: Reactive Variability: Moderate Decels: None EXTREMITIES: No cyanosis or edema. BACK: Nontender without obvious deformity. No CVA tenderness. NEUROLOGICAL: Awake and alert. Motor and sensory grossly within normal limits. Five out of 5 muscle strength in all muscle groups. Normal speech. (Rocky Greene MD R1) Data Data Vital Signs Reviewed: Yes Orders Vital Signs (Adult) .ON ADMISSION (10/10/16 11:46) ^ Labor Status (10/10/16 11:46) Urinalysis - C+S If Indicated (10/10/16 11:46) ^ Hydration (10/10/16 11:46) Heart (10/10/16 11:46) ^ Status (10/10/16 11:46) (Rocky Greene MD R1) [facility] Medical Record Reviewed: Yes Plan Patient is a 21-year-old at 30 weeks and 3 days who presents with decreased movement right lower quadrant abdominal pain. 1. Decreased movement Monitor heart rate, reassuring category 1 tracing Monitor vital signs, afebrile vital signs stable and within normal limits Encourage by mouth hydration 2. Right lower quadrant abdominal pain. Patient found to have UTI. Diagnosed with recurrent UTIs complicating . UA remarkable for moderate leukocyte esterase, 9 WBCs, rare urine bacteria, few urine mucus, culture indicated. We'll discharge with prescription for Keflex 500 mg 3 times a day for 10 days and repeat urine culture in 2 weeks. Monitor labor status with tocometry, no contractions noted Encourage by mouth hydration 3. IUGR Have patient follow-up in clinic within the next week Have patient follow-up in clinic weekly Have patient have EPP weekly kick count daily. Patient counseled to do 2-3 hours of kick count prior to presenting with decreased movement. 4. Limited care HIV negative, RPR negative; repeat these tests again today given limited PNC and +MJ on tox screen. Marijuana positive, otherwise tox screen negative Glucose [place] testing today after discharge from OB ED 5. frequent vomiting. Patient's last marijuana use 2 days ago. Patient counseled about cannabinoid/cannabis hyperemesis syndrome. Recommended stopping marijuana use. s/d/w Dr. Leach (Rocky Greene MD R1) Medical Record Reviewed: Yes Attending Attestation Patient seen and examined, H&P reviewed, case discussed with Drs. Greene and Reyna Gómez. Agree with findings as documented in resident note above. Patient is discharged from OB ED triage with lab order to complete this afternoon, and prescription for cephalexin for presumed UTI, and based on review of prior C&S . She is encouraged to adhere to follow-up with PCP <1wk, and will likely require visits every 1 to 2 weeks thereafter. (Shruti Leach MD) Diagnosis Diagnosis: Primary Impression: Normal Additional Impressions: IUGR (intrauterine growth restriction) affecting care of mother Anemia Abdominal pain during Limited care Recurrent UTI (urinary tract infection) complicating Disposition: 01 DISCHARGE HOME Condition: Good Scripts Cephalexin (Keflex)250 Mg [id number] Mg PO Q6H 10 Days Ref 0 Prov:Rocky Greene MD R1 10/10/16 Rocky Greene MD R1 October 10, 2016 12:30 Shruti Leach MD October 10, 2016 16:27
[2016-10-10 13:02] LABS: BACTERIA, URINE RARE /hpf; BLOOD, URINE NEG (NEG); GLUCOSE,URINE NEG (NEG); HYALINE CAST, URINE 1 /lpf (RARE); KETONE, URINE NEG (NEG); MUCUS URINE FEW /lpf (OCC); NITRITE,URINE NEG (NEG); PH, URINE 6.5 (5.0-8.5); SQUAMOUS EPITHELIAL CELL URINE 18 /hpf (0-5); TRANSITIONAL EPI CELLS, URINE <1 /hpf; URINE COLOR YELLOW (YELLW/STRAW)
[2016-10-10 13:03] LABS: COMMENT (UR) CULTURE INDICATED; CULTURE IF INDICATED CULTURE INDICATED
[2016-10-10] MEDS ORDERED: CEPH-459 PO (13:16)
== END 2016-10-10 13:29 | disposition home or self-care (01) ==
LOC: HOBED 11:21
DX: O36.5930 Maternal care for other known or suspected poor fetal growth, third trimester, not applicable or unspecified (principal); O99.013 Anemia complicating pregnancy, third trimester; R10.31 Right lower quadrant pain; O09.33 Supervision of pregnancy with insufficient antenatal care, third trimester; O23.43 Unspecified infection of urinary tract in pregnancy, third trimester; B96.89 Other specified bacterial agents as the cause of diseases classified elsewhere; Z87.440 Personal history of urinary (tract) infections; Z3A.30 30 weeks gestation of pregnancy
CPT/HCPCS: 81001; 87077; 87086; 87186; 99284

== ENCOUNTER → 2016-10-12 | Outpatient (CLI) | payer MEDICAID ==
[~2016-10-12] MED LIST changes: +CEPH-459 PO; +METR-1 PO
== END ==
LOC: HPND 12:56
PROVIDERS: ATTEND Family Medicine
DX: O36.5930 Maternal care for other known or suspected poor fetal growth, third trimester, not applicable or unspecified (principal); Z3A.30 30 weeks gestation of pregnancy
CPT/HCPCS: 76818; 76820; 76821

== ENCOUNTER 2016-10-16 22:17 | Emergency (ER) | payer MEDICAID ==
[~2016-10-16 22:17] MED LIST changes: -METR-1 PO
--- NOTE | 2016-10-16 22:37 | PD ---
HPI Chief Complaint Abdominal pain and spotting x 1 day Time Seen: 23:42 (Valentín Reid MD R2) Travel History International Travel<30 Days: No Contact w/Intl Traveler<30Days: No (Valentín Reid MD R2) History of Present Illness HPI Ms. Reyes is a 21 y/o presentation at 31.2 weeks gestation, with 1 day of spotting and worsening lower abdominal pain. Her pain began this morning and has gradually gotten worse. Her pain is in the lower quadrant, severe in nature, sharp, and is constant. She also has noticed vaginal spotting since this morning. She denies recent sexual intercourse. She reports spotting from 14 weeks up until 24 weeks gestation. She denies any abdominal trauma. She is finishing a course of an ABX that she does not recall the name of. She does report watery diarrhea for the past 2-3 days. She denies lower back pain, fevers, chills, chest pain, or SOB. No LOF. Endorses ++ FM. BPP was 10/10 earlier this AM with reactive strip. She was told that if the spotting persists, to come into the OB ED. Serial US have shown IUGR (<3%), posterior laying placenta without evidence of previa. She also was noted having a 1.7 x 1.6 x 1.0 cm placental cyst at the cord insertion site, as well as a subchorionic hematoma that has resolved. Para: 3 : 1 Miscarriage: 1 (At 17 weeks in September 2015. ) (Valentín Reid MD R2) History Past Medical History Medical History: Denies Significant Hx (Valentín Reid MD R2) Past Surgical History Surgical History: No Previous Surgery (Valentín Reid MD R2) Family History Family History: Negative (Valentín Reid MD R2) Social History Alcohol Use: No Tobacco Use: No Substance Abuse: Yes (Marijuana use last used 1 week prior. ) (Valentín Reid MD R2) Allergies-Medications (Allergen,Severity, Reaction): Coded Allergies: No Known Allergies (Unverified , 10/06/16) Home Meds Active Scripts Metronidazole (Flagyl)500 Mg Kcy365 Mg PO BID #14 TAB Ref 0 Prov:Valentín Reid MD R2 10/17/16 Cephalexin (Keflex)250 Mg [id number] Mg PO Q6H 10 Days Ref 0 Prov:Rocky Greene MD R1 10/10/16 Cephalexin 500 Mg [id number] Mg PO Q6H #12 CAP Ref 0 Prov:Shena Fry MD 10/08/[address] 324 Mg [id number] Mg PO DAILY #30 TAB Ref 0 Prov:Rocky Gardner MD R2 10/07/16 Vit-Ferrous Fumarate ()1 Tab Tab1 Tab PO DAILY #30 TAB Ref 11 Prov:Katie Swann MD R2 07/04/16 Reported Medications Albuterol 6.7 GM Inh (Proventil Hfa 6.7 GM Inh)90 Mcg/Act Aer2 Puff INH Q4-6H PRN (SHORTNESS OF BREATH) #1 INHALER Ref 0 10/07/16 Review of Systems Except as stated in HPI: all other systems reviewed are Neg (Valentín Reid MD R2 ) Physical Exam Narrative GENERAL: Well-nourished, well-developed patient. Minimal amount of distress. SKIN: Warm and dry. Multiple tattoos. HEAD: Normocephalic and atraumatic. EYES: No scleral icterus. No injection or drainage. ENT: No nasal drainage noted. Mucous membranes pink. Airway patent. NECK: Supple, trachea midline. No JVD. CARDIOVASCULAR: Regular rate and rhythm without murmurs, gallops, or rubs. RESPIRATORY: Breath sounds equal bilaterally. No accessory muscle use. BREASTS: Bilateral exam showed no masses , no retractions, no nipple discharge. ABDOMEN/GI: Abdomen soft, non-tender, bowel sounds present, no rebound, no guarding Gravid to 30 weeks. GENITOURINARY: External Genitalia: intact and normal in appearance Cervix: closed, no funneling or bleeding through os. Punctate lesions / friable appearance on cervix. Dilatation: 0 cm Effacement: 0% Station: -3 Presentation: vertex Membranes: intact Uterine Contractions: none on monitor FHT's: Category: 1 Baseline: 135 Reactive: y Variability: mod Decels: none EXTREMITIES: No cyanosis or edema. BACK: Nontender without obvious deformity. No CVA tenderness. NEUROLOGICAL: Awake and alert. Motor and sensory grossly within normal limits. Five out of 5 muscle strength in all muscle groups. Normal speech. (Valentín Reid MD R2) MDM Plan 21 y/o at 31.2 weeks presenting with 1 day of vaginal spotting and increasing abdominal pain. #1 - Abdominal Pain Magen oconnor, vs round ligament pain, vs. labor. -UA +/- culture; negative for signs of infection. -Continuous FHT / NST - reassuring and reactive. Cat 1 #2 - Spotting Placental separation, placental cyst rupture, placental hematoma, cervicitis ( previous dx of chlamydia in previous ). Cervix closed, no funneling or bleeding through os. - Fibronectin NEGATIVE. -GC/Cl on urine PCR, follow up with PCP. -Wet Prep showed ++ Trich. Treat with 2 g flagyl x 1 in ED. Script for partner given to patient. #3 - IUGR Continue with BPP and NST biweekly. Daily kick counts. #4 - Diarrhea Possible c diff colitis vs antibiotic side effect. DW Dr. Roberto JACQUESW Dr. Clark. (Valentín Reid MD R2) Diagnosis Diagnosis: Primary Impression: Abdominal pain during Additional Impression: Third trimester bleeding Disposition: DISCHARGE HOME Condition: Good Scripts Metronidazole (Flagyl)500 Mg [id number] Mg PO BID #14 TAB Ref 0 Prov:Valentín Reid MD R2 10/17/16 Attestation The exam, history, and the medical decision-making described in the above note were completed with the assistance of the resident provider. I reviewed and agree with the findings presented. I attest that I had a [id number] encounter with the patient on the same day, and personally performed and documented my assessment and findings in the medical record. (Odette Mejia MD) Valentín Reid MD R2 Oct 16, 2016 22:37 Odette Mejia MD Oct 17, 2016 00:32
[2016-10-16 23:27] LABS: BACTERIA, URINE RARE /hpf; BLOOD, URINE NEG (NEG); COMMENT (UR) CULT NOT INDICATED; CULTURE IF INDICATED CULT NOT INDICATED; GLUCOSE,URINE NEG (NEG); KETONE, URINE NEG (NEG); MUCUS URINE FEW /lpf (OCC); NITRITE,URINE NEG (NEG); RENAL EPITHELIAL CELLS <1 /hpf; SQUAMOUS EPITHELIAL CELL URINE 7 /hpf (0-5); URINE COLOR YELLOW (YELLW/STRAW)
[2016-10-17] MEDS ORDERED: metroNIDAZOLE 500 MG TAB PO ONE (00:15)
[2016-10-17] MEDS ORDERED: METR-1 PO (00:16)
[2016-10-17 01:34] LABS: CHLAMYDIA PCR NOT DETECTED (NOT DETECT); NEISSERIA PCR NOT DETECTED (NOT DETECT)
== END 2016-10-17 00:48 | disposition home or self-care (01) ==
LOC: HOBED 22:17
DX: O26.893 Other specified pregnancy related conditions, third trimester (principal); R10.9 Unspecified abdominal pain; O26.853 Spotting complicating pregnancy, third trimester; Z3A.31 31 weeks gestation of pregnancy
CPT/HCPCS: 59025; 81001; 82731; 87210; 87491; 87591

== ENCOUNTER 2016-11-23 11:52 | Emergency (ER) | payer MEDICAID ==
[~2016-11-23] VITALS: Ht 170.2 cm; Wt 63.5 kg
[~2016-11-23 11:52] MED LIST changes: +METR-1 PO
[2016-11-23] MEDS ORDERED: HYDR50CA PO (12:52)
--- NOTE | 2016-11-23 12:53 | PD ---
HPI Chief Complaint Rash Date Seen: Nov 23, 2016 Time Seen: 12:30 Travel History International Travel<30 Days: No Contact w/Intl Traveler<30Days: No Known Affected Area: No History of Present Illness HPI 21-year-old at 36/5 weeks gestation presenting for rash. Rash began about a month ago, but worsened suddenly yesterday prompting concern. This patient follows with maternal- medicine receiving biweekly BPP's for IUGR. Last BPP 11/20/16 was 10 out of 10. She notes that the rash is over her lower abdomen describes it as bumps and raised areas. She describes severe itching over her lower abdomen and the palms and soles of her feet, although this itching has resolved over the last 24 hours. She tried some cortisone cream without any relief. She denies vaginal bleeding, contractions, leakage of fluid. Normal movement is noted. History Past Medical History Medical History: Denies Significant Hx Obstetric History Obstetric History First delivered vaginally without complication Past Surgical History Surgical History: No Previous Surgery Family History Family History: Negative Social History Alcohol Use: No Tobacco Use: No Substance Abuse: Yes (marijuana recreationally) Allergies-Medications (Allergen,Severity, Reaction): Coded Allergies: No Known Allergies (Unverified , 10/06/16) Home Meds Active Scripts Hydroxyzine Pamoate 50 Mg Cap50 Mg PO QID PRN (ITCHING) #30 CAP Ref 0 Prov:Guevara Conte MD R1 11/23/[address] 324 Mg [id number] Mg PO DAILY #30 TAB Ref 0 Prov:Rocky Gardner MD R2 10/07/16 Vit-Ferrous Fumarate ()1 Tab Tab1 Tab PO DAILY #30 TAB Ref 11 Prov:Katie Swann MD R2 07/04/16 Discontinued Reported Medications Albuterol 6.7 GM Inh (Proventil Hfa 6.7 GM Inh)90 Mcg/Act Aer2 Puff INH Q4-6H PRN (SHORTNESS OF BREATH) #1 INHALER Ref 0 10/07/16 Discontinued Scripts Metronidazole (Flagyl)500 Mg [id number] Mg PO BID #14 TAB Ref 0 Prov:Valentín Reid MD R2 10/17/16 Cephalexin (Keflex)250 Mg [id number] Mg PO Q6H 10 Days Ref 0 Prov:Rocky Greene MD R1 10/10/16 Cephalexin 500 Mg [id number] Mg PO Q6H #12 CAP Ref 0 Prov:Shena Fry MD 10/08/16 Review of Systems Except as stated in HPI: all other systems reviewed are Neg Physical Exam Narrative GENERAL: Well-nourished, well-developed patient. SKIN: Warm and dry. Occasional skin-colored papules over the lower abdomen, otherwise skin is clear including over palms and soles. HEAD: Normocephalic and atraumatic. EYES: No scleral icterus. No injection or drainage. ENT: No nasal drainage noted. Mucous membranes pink. Airway patent. NECK: Supple, trachea midline. No JVD. CARDIOVASCULAR: Regular rate and rhythm without murmurs, gallops, or rubs. RESPIRATORY: Breath sounds equal bilaterally. No accessory muscle use. BREASTS: Bilateral exam showed no masses , no retractions, no nipple discharge. ABDOMEN/GI: Abdomen soft, non-tender, bowel sounds present, no rebound, no guarding GENITOURINARY: External Genitalia: intact and normal in appearance BUS glands: normal Cervix: posterior Dilatation: closed Effacement: thick Station: high Presentation: vertex Membranes: intact Uterine Contractions: none FHT's: Category: 1 Baseline: 120 Reactive: Y Variability: moderate Decels: N EXTREMITIES: No cyanosis or edema. BACK: Nontender without obvious deformity. No CVA tenderness. NEUROLOGICAL: Awake and alert. Motor and sensory grossly within normal limits. Five out of 5 muscle strength in all muscle groups. Normal speech. Data Data Vital Signs Reviewed: Yes Orders Vital Signs (Adult) .ON ADMISSION (11/23/16 12:26) ^ Labor Status (11/23/16 12:26) ^ Non Stress Test (11/23/16 12:26) ^ Hydration (11/23/16 12:26) Comprehensive Metabolic Panel (11/23/16 12:26) Bile Acids Total (11/23/16 12:28) MDM Medical Record Reviewed: Yes Narrative Course / MDM 21-year-old at 36/5 weeks gestation presenting with itching #1 IUP Category 1 tracing, reassuring - Routine antepartum care - GBS swab performed #2 IUGR Receives twice weekly BPP's, last one 11/20/16 was normal - Continue BPP is as above, follow-up with PCP #3 itching Likely neuropathic pruritus, but could also be papular urticaria of - LFTs and bile acids to rule out cholestasis - Given prescription for hydroxyzine as needed - Follow up with PCP piercew Dr. Cee Diagnosis Diagnosis: Primary Impression: Localized pruritus Disposition: 01 DISCHARGE HOME Condition: Good Scripts Hydroxyzine Pamoate 50 Mg Cap50 Mg PO QID PRN (ITCHING) #30 CAP Ref 0 Prov:Guevara Conte MD R1 11/23/16 Patient Instructions: Movement (ED), General Instructions Guevara Conte MD R1 Nov 23, 2016 12:52
[2016-11-23 13:58] LABS: CHLORIDE 108 MEQ/L (98-107); POTASSIUM 3.9 MEQ/L (3.5-5.1); SODIUM (NA) 140 MEQ/L (136-145)
[2016-11-23 13:59] LABS: ALKALINE PHOSPHATASE 142 U/L (45-117); ALT (GPT) 12 U/L (10-53); ANION GAP 9 MEQ/L (5-15); AST (GOT) 14 U/L (15-37); BICARBONATE 23.3 MEQ/L (21.0-32.0); BLOOD UREA NITROGEN 6 MG/DL (7-18); GLOMERULAR FILTRATION RATE 169 ML/MIN (>89); TOTAL BILIRUBIN ADULT 0.4 MG/DL (0.2-1.0)
== END 2016-11-23 14:29 | disposition home or self-care (01) ==
LOC: HOBED 11:52
DX: O26.899 Other specified pregnancy related conditions, unspecified trimester (principal); L29.9 Pruritus, unspecified; Z3A.36 36 weeks gestation of pregnancy; Z79.899 Other long term (current) drug therapy; Z34.93 Encounter for supervision of normal pregnancy, unspecified, third trimester
CPT/HCPCS: 36415; 80053; 82239; 87081; 99284

== ENCOUNTER 2016-12-04 18:17 | Inpatient (IN) | payer MEDICAID ==
[~2016-12-04] VITALS: Ht 170.2 cm; Wt 64.9 kg
[~2016-12-04 18:17] MED LIST changes: -ALBU6.7H INH; -CEPH-459 PO; -CEPH500C PO; +HYDR50CA PO; -METR-1 PO
[2016-12-04 19:00] VITALS: RESP 16
[2016-12-04] MEDS ORDERED: SODIUM CHLORID 0.9% 500 ML INJ 500 ML IV PRN (19:00)
[2016-12-04] MEDS ORDERED: OXYTOCIN 30 UNITS-500ML PREMIX 500 ML IV ONE (19:00)
[2016-12-04] MEDS ORDERED: MINERAL OIL 10 ML VIAL TOPICAL PRN (19:00)
[2016-12-04] MEDS ORDERED: MISOPROSTOL 25 MCG SUPP VAGINAL ONE (19:00)
[2016-12-04] MEDS ORDERED: LIDOCAINE HCL 1% 50 ML VIAL I-DERMAL PRN (19:00)
[2016-12-04] MEDS ORDERED: LIDOCAINE HCL 1% 50 ML VIAL INFIL PRN (19:00)
[2016-12-04] MEDS ORDERED: CITRIC ACID-SODIUM CITRATE LIQ 30 ML UDC PO SCH (19:00)
[2016-12-04] MEDS ORDERED: SODIUM CHLOR 0.9% 1000 ML INJ 1,000 ML IV PRN (19:20)
--- NOTE | 2016-12-04 19:29 | HHI.HP ---
HPI Chief Complaint induction of labor Date Seen: Dec 04, 2016 Travel History International Travel<30 Days: No Contact w/Intl Traveler<30Days: No History of Present Illness HPI Ms. Reyes is a [address] Jones at 38 2/7 weeks (HORACE 8/5 via 13 wk US) who presents for induction of labor. Ms. Reyes reports that she is doing well at this time; she reports normal movement. Patient does not report vaginal bleeding, vaginal discharge, or loss vaginal fluid. Patient does not report abdominal pain. Patient does not report headache, vision changes, shortness of breath, chest pain, dysuria, or other symptoms at this time. Patient reports marijuana usage during but denies tobacco, drinking, or illicit drugs. Per patient and EMR, diagnosed with IUGR and has been followed by MFM; patient has had twice weekly testing which is been reassuring with normal umbilical Doppler flow. Per MFM documentation, patient recommended to have induction at 38 weeks gestation. Patient reports anemia with hemoglobin 9-10 during this gestation; she reports having required 2+ iron infusions as . Review of labs: GBS positive, anemic, otherwise unremarkable Para: 1 : 2 History Past Medical History Narrative Medical Anemia Marijuana usage Obstetric History Obstetric History 001 Prior full-term vaginal delivery Past Surgical History Narrative Surgical None reported Family History Narrative Family History Patient denies any significant family history Social History Narrative Social History Patient denies tobacco use, alcohol abuse. Patient reports marijuana usage; last was 3 weeks ago Alcohol Use: No Tobacco Use: No Substance Abuse: No Allergies-Medications (Allergen,Severity, Reaction): Coded Allergies: No Known Allergies (Unverified , 12/04/16) Home Meds Active Scripts Hydroxyzine Pamoate 50 Mg Cap50 Mg PO QID PRN (ITCHING) #30 CAP Ref 0 Prov:Guevara Conte MD R1 11/23/[address] 324 Mg [id number] Mg PO DAILY #30 TAB Ref 0 Prov:Rocky Gardner MD R2 10/07/16 Vit-Ferrous Fumarate ()1 Tab Tab1 Tab PO DAILY #30 TAB Ref 11 Prov:Katie Swnan MD R2 07/04/16 Review of Systems General / Constitutional: No: Fever, Chills Eyes: No: Diploplia, Blurred Vision HENT: No: Headaches Cardiovascular: No: Chest Pain or Discomfort, Palpitations Respiratory: No: Cough, Short of Breath Gastrointestinal: No: Nausea, Vomiting Genitourinary: No: Urgency, Dysuria Musculoskeletal: No: Limited ROM Skin: No Rash Neurologic: No: Weakness, Dizziness Psychiatric: No: Anxiety, Depression Physical Exam 98.1F RR 16 HR 77 BP 125/69 Narrative GENERAL: Well-nourished, well-developed patient. SKIN: Nonerythematous maculopapular rash HEAD: Normocephalic and atraumatic. EYES: No scleral icterus. No injection or drainage. ENT: No nasal drainage noted. Mucous membranes pink. Airway patent. NECK: Supple, trachea midline. No JVD. CARDIOVASCULAR: Regular rate and rhythm without murmurs, gallops, or rubs. RESPIRATORY: Breath sounds equal bilaterally. No accessory muscle use. ABDOMEN/GI: Abdomen soft, non-tender, bowel sounds present, no rebound, no guarding Gravid EXTREMITIES: No cyanosis or edema. BACK: Nontender without obvious deformity. No CVA tenderness. NEUROLOGICAL: Awake and alert. Motor and sensory grossly within normal limits. GENITOURINARY: (performed by nursing staff) External Genitalia: intact and normal in appearance Cervix: Dilatation: fingertip Effacement: thick Station: -3 Presentation: V (confirmed with bedside US) Membranes: Intact Uterine Contractions: none/irritability FHT's: Category: 1 Baseline: 150 Reactive: Y Variability: Mod Decels: none Data Data Orders Admit To Inpatient (12/04/16 ) Vital Signs (Adult) .Per protocol (12/04/16 19:00) Heart (12/04/16 19:00) Amnioinfusion (12/04/16 19:00) Urinary Catheter Management .ONCE (12/04/16 19:00) Diet Liquid (12/04/16 Dinner) Sodium Chlorid 0.9% 500 Ml Inj (Ns 500 M (12/04/16 19:00) Sodium Chlor 0.9% 1000 Ml Inj (Ns 1000 M (12/04/16 19:20) Lidocaine 1% Inj (50 Ml) (Xylocaine 1% I (12/04/16 19:00) Citric Acid-Sodium Citrate Liq (Bicitra (12/04/16 19:00) Fentanyl Inj (Fentanyl Inj) (12/04/16 19:00) Fentanyl Inj (Fentanyl Inj) (12/04/16 19:00) Complete Blood Count With Diff (12/04/16 19:00) Hold Clot (12/04/16 19:00) Abo/Rh Blood Type (12/04/16 19:00) Urinalysis - C+S If Indicated (12/04/16 19:00) Resp Oxygen Non Rebreathe Mask (12/04/16 ) ^ Epidural / Intrathecal Infus (12/04/16 19:00) Oxytocin 30 Units-500ml Premix (Pitocin (12/04/16 19:00) Lidocaine 1% Inj (50 Ml) (Xylocaine 1% I (12/04/16:00) Light Mineral Oil (Muri-Lube Oil) (12/04/16 19:00) Activity Oob Ad Leni (12/04/16 19:00) ^ Labor Induction (12/04/16 19:00) ^ Vaginal Insert (12/04/16 19:00) ^ Vaginal Lavage (12/04/16 19:00) Heart (12/04/16 19:00) Misoprostol Supp (Cytotec Supp) (12/04/16 19:00) Misoprostol Supp (Cytotec Supp) (12/04/16 23:00) Inpatient Certification (12/04/16 ) Specimen To Be Collected PRN (12/04/16 19:00) Assessment/Plan Problem List: (1) IUGR (intrauterine growth restriction) affecting care of mother Assessment and Plan [address] Jones at 38 2/7 weeks (HORACE 8/5 via 2nd week US) -IUGR w/ normal doppler studies; induction at 38 weeks recommended by MFM -GBS+ - anemia -Cat 1 rhythm -Cervix fingertip, thick -No contractions on EFM Plan: -Will admit for induction -Will check CBC, hold clot, UA -Will give Cytotec 25 mcg since low Graf score (~1) -Will give GBS PPX once regular contractions -Monitor status, tocography Omar Blake MD R2 Dec 04, 2016 19:29
[2016-12-04 20:47] VITALS: BP 125/69; PULSE 77; RESP 16; TEMP 98.1
[2016-12-04] MEDS ORDERED: LACTATED RINGER'S 1000 ML INJ 1,000 ML IV PRN (21:00)
[2016-12-04 21:25] LABS: AUTOMATED NEUTROPHIL # 6.4 TH/MM3 (1.8-7.7); BASOPHIL % 0.5 % (0.0-2.0); EOSINOPHIL # 0.1 TH/MM3 (0-0.4); EOSINOPHIL % 1.2 % (0.0-4.0); HEMATOCRIT 33.1 % (35.0-46.0); HEMO FLAGS DIFF FINAL; LYMPH % 21.2 % (9.0-44.0); LYMPHOCYTE # 2.1 TH/MM3 (1.0-4.8); MEAN CELL VOLUME 85.3 FL (80.0-100.0); MEAN CORPUSCULAR HEMOGLOBIN 27.8 PG (27.0-34.0); MEAN CORPUSCULAR HGB CONC 32.6 % (32.0-36.0); MONO % 11.4 % (0.0-8.0); NEUT % 65.7 % (16.0-70.0); PLATELET COUNT 186 TH/MM3 (150-450); RED BLOOD COUNT 3.88 MIL/MM3 (4.00-5.30); RED CELL DISTRIBUTION WIDTH 15.5 % (11.6-17.2); WHITE BLOOD COUNT 9.8 TH/MM3 (4.0-11.0)
[2016-12-04] MEDS: LACTATED RINGER'S 1000 ML INJ 1,000 ML IV SCH (21:26)
[2016-12-04 22:24] LABS: BACTERIA, URINE MOD /hpf; BLOOD, URINE NEG (NEG); CALCIUM OXALATE CRYSTALS,URINE MOD /hpf; COMMENT (UR) CULTURE INDICATED; CULTURE IF INDICATED CULTURE INDICATED; GLUCOSE,URINE NEG (NEG); KETONE, URINE NEG (NEG); MUCUS URINE FEW /lpf (OCC); NITRITE,URINE NEG (NEG); PH, URINE 6.5 (5.0-8.5); SQUAMOUS EPITHELIAL CELL URINE 14 /hpf (0-5); URINE COLOR YELLOW (YELLW/STRAW)
[2016-12-04 22:49] VITALS: BP 110/52; PULSE 74; RESP 18; TEMP 97.5
[2016-12-04] MEDS ORDERED: MISOPROSTOL 25 MCG SUPP VAGINAL PRN (23:00)
[2016-12-05] VITALS (43 sets, daily range): BP systolic 96–144; BP diastolic 55–94; PULSE 54–103; RESP 16–18; TEMP 97.2–98.4
[2016-12-05] MEDS ORDERED: ONDANSETRON HCL 4 MG/2 ML VIAL ONE (00:08)
[2016-12-05] MEDS: LACTATED RINGER'S 1000 ML INJ 1,000 ML IV SCH (00:30)
[2016-12-05] MEDS ORDERED: ONDANSETRON HCL 4 MG/2 ML VIAL IV PUSH PRN (00:45)
[2016-12-05] MEDS ORDERED: hydrOXYzine HCL 50 MG/ML VIAL IM ONE (00:45)
[2016-12-05] MEDS ORDERED: PENICILLIN G POTASSIUM INJ 5,000,000 UNITS in SODIUM CHLORIDE 0.9% INJ 100 ML IV ONE (01:00)
[2016-12-05] MEDS ORDERED: fentaNYL 2MCG-BUPIV 0.125% INJ 100 ML ONE (03:31)
[2016-12-05] MEDS ORDERED: OXYTOCIN 30 UNITS-500ML PREMIX 500 ML ONE (04:50)
[2016-12-05] MEDS ORDERED: PENICILLIN G POTASSIUM INJ 2,500,000 UNITS in SODIUM CHLORIDE 0.9% INJ 100 ML IV SCH (05:00)
--- NOTE | 2016-12-05 05:07 | PD.LABORPN ---
Subjective Subjective [address] Jones at 38 3/7 weeks induced on 12/04 with several late decels and baseline FHT at 110 noted. AROM at 0440 hours on with light meconium stained fluid noted and 8cm/90%/-1, vertex noted at time of membrane rupture. Objective Vital Signs Vital Signs Date Time Temp Pulse Resp B/P Pulse Ox O2 Delivery O2 Flow Rate FiO2 12/05/16 04:40 67 12/05/16 04:33 66 113/74 12/05/16 04:31 96/68 12/05/16 04:25 65 12/05/16 04:20 63 12/05/16 04:16 116/69 12/05/16 04:10 73 12/05/16 04:05 67 12/05/16 04:00 97.3 12/05/16 04:00 18 12/05/16 04:00 75 127/72 12/05/16 03:57 68 128/67 12/05/16 03:50 126/87 12/05/16 03:50 67 12/05/16 03:40 80 12/05/16 03:40 136/89 12/05/16 03:35 69 16 144/81 12/05/16 03:35 86 12/05/16 03:33 141/88 12/05/16 02:56 60 123/67 12/05/16 02:55 18 12/05/16 01:49 54 124/72 12/05/16 01:49 16 12/05/16 01:48 97.7 12/05/16 01:30 60 12/05/16 00:53 59 110/56 12/05/16 00:52 97.5 16 12/05/16 00:00 18 12/04/16 22:49 74 18 110/52 12/04/16 22:49 97.5 Objective Pelvic Exam: Cervix: [open] Dilatation: 8 Effacement: 90 Station: -1 Presentation: vtx Membranes: AROM at 0440 hours with light meconium stained fluid noted Uterine Contractions: 2-3 minutes following AROM FHT's: Category: 2 Baseline: 110 Reactive: yes Variability: moderate Decels: several variable decels Assessment/Plan Problem List: (1) IUGR (intrauterine growth restriction) affecting care of mother Assessment and Plan [address] Jones at 38 3/7 weeks induced on 12/04 2/2 IUGR with low baseline at 110 and several late decels for Category 2 tracing noted @ 0420 hours on 12/05. 1. IUP - Category 2 tracing with low baseline of 110 and several late decels - Mother placed on supplemental O2 - Pitocin stopped - AROM at 0440 hours with light meconium stained fluid noted - Continue IVF - Continuous monitoring Cornel Christie MD R1 Dec 05, 2016 05:07
--- NOTE | 2016-12-05 05:44 | PD.LABORPN ---
Subjective Subjective Pt resting comfortably in beg with O2 mask in place. No acute concerns. Objective Vital Signs Vital Signs Date Time Temp Pulse Resp B/P Pulse Ox O2 Delivery O2 Flow Rate FiO2 12/05/16 05:05 66 12/05/16 05:00 61 123/63 12/05/16 04:55 79 18 12/05/16 04:45 72 116/70 12/05/16 04:40 67 12/05/16 04:33 66 113/74 12/05/16 04:31 96/68 12/05/16 04:25 65 12/05/16 04:20 63 12/05/16 04:16 116/69 12/05/16 04:10 73 12/05/16 04:05 67 12/05/16 04:00 97.3 12/05/16 04:00 18 12/05/16 04:00 75 127/72 12/05/16 03:57 68 128/67 12/05/16 03:50 126/87 12/05/16 03:50 67 12/05/16 03:40 80 12/05/16 03:40 136/89 12/05/16 03:35 69 16 144/81 12/05/16 03:35 86 12/05/16 03:33 141/88 12/05/16 02:56 60 123/67 12/05/16 02:55 18 12/05/16 01:49 54 124/72 12/05/16 01:49 16 12/05/16 01:48 97.7 12/05/16 01:30 60 12/05/16 00:53 59 110/56 12/05/16 00:52 97.5 16 12/05/16 00:00 18 12/04/16 22:49 74 18 110/52 12/04/16 22:49 97.5 Objective Pelvic Exam: Cervix: midposition Dilatation: 8 Effacement: 90 Station:-1 Presentation: vertex Membranes: meconium Uterine Contractions: q3-4min FHT's: Category: 2 Baseline: 105 Reactive: accels present Variability: moderate Decels: 2 late decels Assessment/Plan Problem List: (1) IUGR (intrauterine growth restriction) affecting care of mother Assessment and Plan [address] Jones at 38 3/7 weeks induced on 12/04 2/2 IUGR. 1. IUP-IUGR - Category 2 tracing with low baseline of 110 and a couple late decels - Mother placed on supplemental O2 - Pitocin stopped - AROM at 0440 hours with light meconium stained fluid noted - Continue IVF - Continuous monitoring -expect vaginal delivery 2. GBS+ * PCN x2 dw Dr. Blake and wdw Dr. Coleman Swann,Katie Huerta MD R2 Dec 05, 2016 05:44
[2016-12-05] MEDS ORDERED: DOCUSATE SODIUM 50 MG/SENNA 8.6 MG TAB PO PRN (05:45)
[2016-12-05] MEDS ORDERED: ONDANSETRON ODT 4 MG TAB PO PRN (05:45)
[2016-12-05] MEDS ORDERED: SODIUM CHLORIDE 0.9% FLUSH 10 ML FLUSH IV FLUSH PRN (05:45)
[2016-12-05] MEDS ORDERED: WITCH HAZEL 50%/GLYCERIN 12.5% 40 PAD JAR TOPICAL PRN (05:45)
[2016-12-05] MEDS ORDERED: OXYTOCIN 30 UNITS-500ML PREMIX 500 ML IV ONE (05:45)
[2016-12-05] MEDS ORDERED: ALUMINUM/MAGNESIUM/SIMETH 30 ML CUP PO PRN (05:45)
[2016-12-05] MEDS ORDERED: BENZOCAINE 20% TOPICAL SPRAY 60 ML CAN TOPICAL PRN (05:45)
[2016-12-05] MEDS ORDERED: ZOLPIDEM TARTRATE 5 MG TAB PO PRN (05:45)
--- NOTE | 2016-12-05 05:51 | PD.OB.DELI ---
Delivery Date: Dec 05, 2016 Anesthesia: Epidural Episiotomy: None Vaginal Delivery: Normal Presentation: Occiput anterior Nuchal Cord: None Delayed cord clamping (45 sec): Yes : Female One Minute : 9 Five Minute : 9 Weight: 2510g Placenta: Spontaneous delivery Laceration: No lacerations Additional Information Short cord present. Placenta sent to path due to IUGR Supervised by Dr. Cee Delivered by Katie Redding MD R2 Dec 05, 2016 05:51
[2016-12-05] MEDS: IBUPROFEN 600 MG TAB PO PRN ×3 (06:50→23:16)
[2016-12-05] MEDS: ACETAMINOPHEN 325 MG TAB PO PRN ×2 (06:51→14:51)
[2016-12-05 08:28] LABS: AMPHETAMINE, URINE NEG (NEG); BARBITURATES, URINE NEG (NEG); COCAINE, URINE NEG (NEG)
[2016-12-05] MEDS ORDERED: fentaNYL 2MCG-BUPIV 0.125% 100 ML EPIDURAL SCH (09:00)
[2016-12-05] MEDS ORDERED: ePHEDrine/NS 25 MG/5 ML SYR IV PRN (09:00)
[2016-12-05] MEDS ORDERED: DO NOT ADMINISTER ANTICOAGULANTS PRN (09:00)
[2016-12-05] MEDS: SODIUM CHLORIDE 0.9% FLUSH 10 ML FLUSH IV FLUSH SCH (09:00)
[2016-12-05] MEDS ORDERED: NO SYSTEM NARCOTICS PRN (09:00)
[2016-12-05] MEDS: diphenhydrAMINE HCL 25 MG CAP PO PRN ×2 (14:51→21:30)
[2016-12-05] MEDS ORDERED: DIPHTH/TETANUS/ACEL PERTUSSIS (BOOSTER) 0.5 ML VIAL/PFS IM ONE (16:00)
[2016-12-05] MEDS ORDERED: MEASLES, MUMPS, RUBELLA VACCINE 0.5 ML VIAL SQ ONE (16:00)
[2016-12-05] MEDS ORDERED: oxyCODONE/ACETAMINOPHEN 5 MG/325 MG TAB PO PRN (17:15)
[2016-12-06] MEDS ORDERED: LORATADINE 10 MG TAB PO ONE (01:00)
[2016-12-06] MEDS ORDERED: diphenhydrAMINE HCL 25 MG CAP PO PRN (01:00)
--- NOTE | 2016-12-06 01:11 | HHI.FPPN ---
Addendum to progress note ADDENDUM Reason for addendum: Additonal documentation Additional information Topher Wilson and Pratik responded to a call from nursing at 2300 hours with pt complaining of an extremely pruritic rash that had spread from pt's abdomen to extremities, trunk and face overnight with prescribed Benadryl 25 mg PO not addressing the pruritus. Pt states rash had been present since November 08 on her abdomen and did not spread until after delivery of her baby on the morning of . Pt states warm moist cloths temporarily stop the itching. Rash noted to be raised papules on abdomen, thorax, UEs bilaterally and face. Assessed to most likely be Pruritic Urticarial Papules and Plaques of (PUPPP) given etiology arising in 3rd trimester and extending ; unlikely to be drug reaction to PCN given presence before treatment. 1. PUPP - Symptomatic treatment indicated - D/C Benadryl - Start Loratadine 10 mg PO/day as 1st line tx - Holding Percocet - Skin emollients available PRN - Consider mid-to-high topical steroids in AM (except face and genitals to avoid skin atrophy) Plan dw Cornel Copeland MD R1 Dec 06, 2016 01:11
--- NOTE | 2016-12-06 06:39 | HHI.OB ---
Subjective Post Day: 1 Remarks 21 year old female s/p IVD due to IUGR at 38/3 wks gestation, PPD 1. AFVSS. Overnight patient had extreme pruritus from worsening rash on abdomen that had now spread over entire body including her face. Patient otherwise reports she is feeling well. Bleeding is decreasing and pain is well- controlled. She is formula and breast feeding and bonding well with baby. Ambulating without difficulties. She is tolerating a diet without nausea or vomiting. Denies chest pain, dysuria, shortness of breath, or calf pain. (Katie James MD R2) Objective Vitals/I&O Vital Signs Date Time Temp Pulse Resp B/P Pulse Ox O2 Delivery O2 Flow Rate FiO2 12/05/16 21:14 98.2 67 16 108/56 12/05/16 15:30 72 18 113/67 12/05/16 15:30 98.4 12/05/16 08:20 124/87 12/05/16 08:20 64 18 12/05/16 08:20 97.7 12/05/16 07:04 97.4 12/05/16 07:01 66 141/87 12/05/16 06:47 63 127/88 12/05/16 06:45 60 143/93 12/05/16 06:45 97.3 Objective Remarks GENERAL: Well-nourished, well-developed patient. SKIN: maculor-papular rash over BL arms, legs, back, face, and abdomen. Most prominent on abdomen. Sandpaper like texture. No active drainage or signs of infection. CARDIOVASCULAR: Regular rate and rhythm without murmurs, gallops, or rubs. RESPIRATORY: Breath sounds equal bilaterally. No accessory muscle use. ABDOMEN/GI: Abdomen soft, non-tender. Fundus: Firm, non-tender at umbilicus. GENITOURINARY: Light to moderate bleeding. EXTREMITIES: No cyanosis or edema, non-tender, without signs of DVT. Medications and IVs Current Medications Medications (Trade) Dose Ordered Sig/Eric Route Start Time Stop Time Status Last Admin Ondansetron HCl 4 mg 4 mg Q8HR PRN IV PUSH 12/05/16 00:45 (Pfizerpen-G Inj/ NS Inj) 100 ml @ 200 mls/hr Q4H IV 12/05/16 05:00 12/05/16 06:51 (NS Flush) 2 ml BID IV FLUSH 12/05/16 09:00 (NS Flush) 2 ml UNSCH PRN IV FLUSH 12/05/16 05:45 (Tylenol) 650 mg Q4H PRN PO 12/05/16 05:45 12/05/16 14:51 (Motrin) 600 mg Q6H PRN PO 12/05/16 05:45 12/05/16 23:16 (Americaine 20% Top Spr) 1 spray Q4H PRN TOPICAL 12/05/16 05:45 (Tucks Pads) 1 applic QID PRN TOPICAL 12/05/16 05:45 (Mary Anne-Colace) 2 tab Q12H PRN PO 12/05/16 05:45 (Ambien) 5 mg HS PRN PO 12/05/16 05:45 (Mag-Al Plus Susp Liq) 15 ml Q8H PRN PO 12/05/16 05:45 (Zofran Odt) 4 mg Q6H PRN PO 12/05/16 05:45 Miscellaneous Information No systemic narcotics to be given except... UNSCH PRN .XX 12/05/16 09:00 12/06/16 08:59 Miscellaneous Information DO NOT ADMINISTER ANY ANTICOAGUL... UNSCH PRN .XX 12/05/16 09:00 12/06/16 08:59 (fentaNYL 2MCG-BUPIV 0.125% INJ) 100 ml @ 0 mls/hr TITRATE EPIDURAL 12/05/16 09:00 (ePHEDrine/NS 25 MG/5 ML SYR) 10 mg UNSCH PRN IV 12/05/16 09:00 12/06/16 08:59 (Katie Swann MD R2) Assessment/Plan Problem List: (1) IUGR (intrauterine growth restriction) affecting care of mother Assessment and Plan 21 yo female s/p IVD due to IUGR PPD 1. - AFVSS - Continue routine care * Pruritic Urticarial Papules and Plaques of (PUPPP): treating with Claritin, topical steroids, and Eucerin lotion. - Motrin PRN pain - Encourage OOB - Pelvic rest x 6 wks. - Contraception: Depo-Provera scheduled for 12/07 - Recommend post follow up in 6 wks - Anticipate D/C tomorrow wdw OB Hospitalist (Katie Swann MD R2) Collaborating MD Comments Discussed care and discharge with resident (Bhavna Rodriges MD) Katie Swann MD R2 Dec 06, 2016 06:39 Bhavna Rodriges MD Dec 12, 2016 12:42
[2016-12-06] MEDS ORDERED: diphenhydrAMINE HCL 50 MG CAP PO PRN (07:30)
[2016-12-06] MEDS ORDERED: CLAR10TA7 PO (07:43)
[2016-12-06] MEDS ORDERED: TRIAM.1%T TOPICAL (07:43)
[2016-12-06] MEDS ORDERED: HYDR1CRE70 TOPICAL (07:43)
[2016-12-06] MEDS ORDERED: Eucerin Cream TOPICAL (07:43)
--- NOTE | 2016-12-06 07:44 | HHI.DCPOC ---
Discharge Care Plan Diagnosis: (1) Vaginal delivery (2) Pruritic urticarial papules and plaques of (puppp) Report Symptoms to Your Doctor -Temperature above 100.5 degrees -Redness, of incision or excessive or foul smelling drainage -Unusual pain or calf pain -Increased vaginal bleeding -Painful or difficulty urinating -Feelings of extreme sadness or anxiety after 2 weeks Goals to Promote Your Health * To prevent worsening of your condition and complications * To maintain your health at the optimal level Directions to Meet Your Goals Take your medications as prescribed Follow your dietary instruction Follow activity as directed Ensure plenty of rest for recovery Drink fluids for hydration Keep your appointments as scheduled Take your immunizations and boosters as scheduled If your symptoms worsen call your PCP, if no PCP go to Urgent Care Center or Emergency Room Smoking is Dangerous to Your Health. Avoid second hand smoke Call the 24-hour crisis hotline for domestic abuse at Katie Swann MD R2 Dec 06, 2016 07:44
[2016-12-06 08:12] VITALS: BP 102/69; PULSE 66; RESP 16; TEMP 98.2
[2016-12-06] MEDS: EUCERIN CREAM 120 GM JAR TOPICAL SCH ×3 (09:15→19:04)
[2016-12-06] MEDS: IBUPROFEN 600 MG TAB PO PRN ×2 (09:15→19:03)
[2016-12-06] MEDS: HYDROCORTISONE 1% CREAM 30 GM TOPICAL SCH ×2 (09:16→19:04)
[2016-12-06] MEDS: TRIAMCINOLONE ACETONIDE 0.1% OINT 15 GM TUBE TOPICAL SCH ×2 (09:17→19:03)
[2016-12-06] MEDS: SODIUM CHLORIDE 0.9% FLUSH 10 ML FLUSH IV FLUSH SCH (20:50)
[2016-12-07] MEDS: IBUPROFEN 600 MG TAB PO PRN ×2 (01:03→08:53)
[2016-12-07] MEDS: EUCERIN CREAM 120 GM JAR TOPICAL SCH ×2 (02:00→08:53)
--- NOTE | 2016-12-07 08:21 | HHI.OB ---
Subjective Post Day: 2 Remarks Patient is a 21-year-old delivered at 38 weeks and 3 days. Patient is day 2 after vaginal delivery, following induction. Patient's pain is well-controlled. Patient reports eating and drinking without any nausea or vomiting. Patient reports minimal bleeding. Patient has passed gas and has had two bowel movements. Patient is walking without lower extremity pain or shortness of breath. Patient will receive Depo-Provera injection today. Patient desires to breast-feed. UDS at admission was positive for cannabinoids. Patient will have repeat UDS in one week. At one week appointment, patient's physician will make recommendations with regards to breast feeding. In the meantime, patient was encouraged to speak to pediatric team and pump breast milk to ensure that milk is produced for possible breast-feeding in the near future. Patient ready to go home today. (Maribell Miguel MD R1) Objective Vitals/I&O Vital Signs Date Time Temp Pulse Resp B/P Pulse Ox O2 Delivery O2 Flow Rate FiO2 12/06/16 08:12 98.2 66 16 102/69 Objective Remarks GENERAL: Well-nourished, well-developed patient. SKIN: Maculor-papular rash over bilateral arms, legs, back, face, and abdomen - improving. No active drainage or signs of infection. CARDIOVASCULAR: Regular rate and rhythm without murmurs, gallops, or rubs. RESPIRATORY: Breath sounds equal bilaterally. No accessory muscle use. ABDOMEN/GI: Abdomen soft, non-tender. Fundus: Firm, non-tender at umbilicus. GENITOURINARY: Light bleeding. EXTREMITIES: No cyanosis or edema, non-tender, without signs of DVT. Medications and IVs Current Medications Medications (Trade) Dose Ordered Sig/Eric Route Start Time Stop Time Status Last Admin (Zofran Inj) 4 mg Q8HR PRN IV PUSH 12/05/16 00:45 (NS Flush) 2 ml BID IV FLUSH 12/05/16 09:00 (NS Flush) 2 ml UNSCH PRN IV FLUSH 12/05/16 05:45 (Tylenol) 650 mg Q4H PRN PO 12/05/16 05:45 12/05/16 14:51 (Motrin) 600 mg Q6H PRN PO 12/05/16 05:45 12/07/16 01:03 (Americaine 20% Top Spr) 1 spray Q4H PRN TOPICAL 12/05/16 05:45 (Tucks Pads) 1 applic QID PRN TOPICAL 12/05/16 05:45 (Mary Anne-Colace) 2 tab Q12H PRN PO 12/05/16 05:45 (Ambien) 5 mg HS PRN PO 12/05/16 05:45 (Mag-Al Plus Susp Liq) 15 ml Q8H PRN PO 12/05/16 05:45 Ondansetron HCl 4 mg 4 mg Q6H PRN PO 12/05/16 05:45 (fentaNYL 2MCG-BUPIV 0.125% INJ) 100 ml @ 0 mls/hr TITRATE EPIDURAL 12/05/16 09:00 (Aristocort 0.1% Oint) 1 applic BID TOPICAL 12/06/16 09:00 12/06/16 19:03 (Hydrocortisone 1% Cream) 1 applic BID TOPICAL 12/06/16 09:00 12/06/16 19:04 (Eucerin Cream) 1 applic Q6H TOPICAL 12/06/16 08:00 12/06/16 19:04 (Claritin) 10 mg DAILY PO 12/07/16 09:00 12/06/16 09:18 (Depo-Provera Inj) 150 mg ONCE ONCE IM 12/07/16 09:00 12/07/16 09:01 (Benadryl) 50 mg Q8H PRN PO 12/06/16 07:30 (Maribell Miguel MD R1) Assessment/Plan Problem List: (1) IUGR (intrauterine growth restriction) affecting care of mother (2) Vaginal delivery Assessment and Plan 21 yo female s/p IVD due to IUGR PPD 2. - AFVSS - Continue routine care * Pruritic Urticarial Papules and Plaques of (PUPPP): treating with Claritin, topical steroids, and Eucerin lotion; rash improving. - Motrin PRN pain. - Encourage OOB. - Pelvic rest x 6 wks. - Contraception: Depo-Provera scheduled for 12/07. - UDS repeat in 1 week with follow-up with family medicine doctor to discuss breast feeding recommendations. - Post follow up in 6 wks. - Anticipate D/C today. dw OB Hospitalist (Maribell Miguel MD R1) Attending Attestation PPD #2 s/p Doing well , minimal cramping D/c home today F/u with Family Practice clinic Pateint seen and examined and D/w Dr. Miguel. (Vandana Ruvalcaba MD) Maribell Miguel MD R1 Dec 07, 2016 08:21 Vandana Ruvalcaba MD Dec 07, 2016 09:03
[2016-12-07] MEDS: HYDROCORTISONE 1% CREAM 30 GM TOPICAL SCH (08:53)
[2016-12-07] MEDS: TRIAMCINOLONE ACETONIDE 0.1% OINT 15 GM TUBE TOPICAL SCH (08:54)
[2016-12-07] MEDS ORDERED: medroxyPROGESTERone ACETATE SUSP 150 MG/ML SYRINGE IM ONE (09:00)
[2016-12-07] MEDS ORDERED: LORATADINE 10 MG TAB PO SCH (09:00)
[2016-12-08 09:00] LABS: BATH SALTS (MDPV) UR NEG (NEG); ECSTASY (MDMA) UR NEG (NEG); GABAPENTIN UR NEG (NEG); HEROIN (6-ACETYLMORPHINE) UR NEG (NEG); K2 SPICE UR NEG (NEG); OBMETHADONE UR NEG (NEG); OXYCODONE (PERCODAN) NEG (NEG); PHENCYCLIDINE URINE NEG (NEG)
[2016-12-08 09:01] LABS: HYDROMORPHONE U NEG (NEG)
== END 2016-12-07 12:27 | disposition home or self-care (01) | DRG 775 ==
LOC: H2EB 18:17 → H1EA 12-05 07:59
PROVIDERS: ADMIT Obstetrics & Gynecology Maternal & Fetal Medicine; ATTEND Obstetrics & Gynecology Maternal & Fetal Medicine
PROC: 3E0P7GC Introduction of Other Therapeutic Substance into Female Reproductive, Via Natural or Artificial Opening (ICD-10-PCS; 2016-12-04)
PROC: 10E0XZZ Delivery of Products of Conception, External Approach (ICD-10-PCS; principal; 2016-12-05)
PROC: 10907ZC Drainage of Amniotic Fluid, Therapeutic from Products of Conception, Via Natural or Artificial Opening (ICD-10-PCS; 2016-12-05)
PROC: 3E0S3CZ (ICD-10-PCS; 2016-12-05)
PROC: 00HU33Z Insertion of Infusion Device into Spinal Canal, Percutaneous Approach (ICD-10-PCS; 2016-12-05)
DX: O36.5930 Maternal care for other known or suspected poor fetal growth, third trimester, not applicable or unspecified (principal); O99.324 Drug use complicating childbirth; F12.90 Cannabis use, unspecified, uncomplicated; O26.86 Pruritic urticarial papules and plaques of pregnancy (PUPPP); O99.02 Anemia complicating childbirth; D64.9 Anemia, unspecified; O99.824 Streptococcus B carrier state complicating childbirth; O77.0 Labor and delivery complicated by meconium in amniotic fluid; O76 Abnormality in fetal heart rate and rhythm complicating labor and delivery; O69.3XX0 Labor and delivery complicated by short cord, not applicable or unspecified; Z37.0 Single live birth; Z3A.38 38 weeks gestation of pregnancy
CPT/HCPCS: 59025; 80307; 81001; 85025; 87086; 88307; 90715; G0481; J2405; J2540; J2590; J3010; J7030; J7120